=== PATIENT | female | born 1950 | race Caucasian/White ===

== ENCOUNTER 2018-02-24 10:24 | Inpatient (IN) ==
[2018-02-24] MEDS ORDERED: Magnesium Sulfate Inj 2 GM in Sodium Chlor 0.9% Inj 96 ML IV.SIG ONE (10:32)
[2018-02-24] MEDS ORDERED: Famotidine PF Inj 20 MG/2 ML Vial IV.PUSH ONE (10:44)
[2018-02-24 10:56] LABS: Baso # (Auto) 0.1 th/mm3 (0.0-0.2); Baso % (Auto) 0.7 % (0.0-2.0); Eos # (Auto) 0.1 th/mm3 (0.0-0.4); Eos % (Auto) 0.8 % (0.0-4.0); Hematocrit 51.6 % (35.0-46.0); Hemoglobin 16.8 gm/dL (11.6-15.3); Lymph % (Auto) 41.5 % (9.0-44.0); Mean Corpuscular HGB Conc 32.5 % (32.0-36.0); Mean Corpuscular Hemoglobin 31.8 pg (27.0-34.0); Mean Corpuscular Volume 98.1 fL (80.0-100.0); Mono # (Auto) 0.6 th/mm3 (0.0-0.9); Mono % (Auto) 6.8 % (0.0-8.0); Neut # (Auto) 4.7 th/mm3 (1.8-7.7); Neut % (Auto) 50.2 % (16.0-70.0); Platelet Count 284 th/mm3 (150-450); Red Blood Count 5.27 mil/mm3 (4.00-5.30); Red Cell Distribution Width 12.8 % (11.6-17.2); White Blood Count 9.5 th/mm3 (4.0-11.0)
--- NOTE | 2018-02-24 10:57 | ED ---
HPI General Chief Complaint: Shortness of Breath/Dyspnea Stated Complaint: breathing problems/evac Time Seen by Provider: 02/24/18 10:30 Source: patient and EMS Mode of arrival: EMS Limitations: no limitations History of Present Illness 67-year-old female patient with previous history of COPD, presents to the ER today brought in by EMS because of sudden worsening of shortness of breath this morning according to her , coughing, and dyspnea. She currently is fairly anxious, is very difficult to get a history from. She apparently is allergic to Solu-Medrol and prednisone, states that she throws up. She had been given albuterol nebulizers by EMS. She denies any previous history of hospitalizations for COPD. Modifying Factors: None Associated Signs & Symptoms: None dyspnea, shortness of breath Risk Factors: COPD Related Data Home Medications Medication Instructions Recorded Confirmed albuterol sulfate [Ventolin HFA] 2 puff INHALATION Q4-6H PRN 02/24/18 02/24/18 aspirin 81 mg PO DAILY 02/24/18 02/24/18 doxycycline hyclate 50 mg PO DAILY 02/24/18 02/24/18 fenofibrate 150 mg PO DAILY 02/24/18 02/24/18 triamterene-hydrochlorothiazid 1 tab PO DAILY 02/24/18 02/24/18 umeclidinium-vilanterol [Anoro 1 inh INHALATION Q24H 02/24/18 02/24/18 Ellipta] Allergies Allergy/AdvReac Type Severity Reaction Status Date / Time bacitracin Allergy Severe ITCH Verified 02/24/18 11:01 clarithromycin Allergy Severe Dizziness Verified 02/24/18 11:04 codeine Allergy Severe AGITATION Verified 02/24/18 11:01 gramicidin D Allergy Severe ITCH Verified 02/24/18 11:01 neomycin Allergy Severe ITCH Verified 02/24/18 11:01 penicillin G Allergy Severe HIVES Verified 02/24/18 11:01 polymyxin B Allergy Severe ITCH Verified 02/24/18 11:01 succinylcholine Allergy Severe PSEUDOCHOLINESTERASE Verified 02/24/18 11:01 DEFICIENCY triamterene Allergy Severe Swelling Verified 02/24/18 11:04 of Lip/Tongue/Throat Review of Systems ROS: all other systems reviewed are negative PMFSH History History Provided By: Patient Medical History Medical History Breast CA (Acute) COPD (chronic obstructive pulmonary disease) (Acute) Surgical History Surgical History H/O lumpectomy (Acute) Social History Social History Substance History: No History of Abuse Smoking Status: Former smoker How Often Do You Have a Drink Containing Alcohol: 4 or more times a week Recent Travel in [facility] within the Last 8 Weeks: Yes Recent Out of Country Travel within the Last 8 Weeks: Yes Exam Narrative Exam Narrative: GENERAL: Well-developed elderly female patient currently and moderate to severe respiratory distress. Awake, alert, very anxious. SKIN: Focused skin assessment warm/diaphoretic. HEAD: Atraumatic. Normocephalic. EYES: Pupils equal and round. No scleral icterus. No injection or drainage. ENT: No nasal bleeding or discharge. Mucous membranes pink and moist. NECK: Trachea midline. No JVD. CARDIOVASCULAR: fast and regular rhythm. No murmur appreciated. RESPIRATORY: moderate accessory muscle use. Decreased lung sounds at the bases bilaterally, crackles in the upper lung rodriguez bilaterally. Breath sounds equal bilaterally. GASTROINTESTINAL: Abdomen soft, non-tender, nondistended. Hepatic and splenic margins not palpable. MUSCULOSKELETAL: No obvious deformities. No clubbing. No cyanosis. No edema. NEUROLOGICAL: Awake and alert. No obvious cranial nerve deficits. Motor grossly within normal limits. Normal speech. PSYCHIATRIC: Very anxious mood and affect; insight and judgment normal. Course Initial Documented Vital Signs Pulse Oximetry 96 02/24/18 10:24 Last Documented Vital Signs Temperature 99 F 02/24/18 11:18 Pulse Rate 100 H 02/24/18 12:50 Respiratory Rate 20 02/24/18 12:50 Blood Pressure 122/69 02/24/18 12:50 Pulse Oximetry 95 02/24/18 12:50 Medical Decision Making MDM Narrative Medical decision making narrative: Patient was initially in significant respiratory distress and BiPAP was initiated in the ER. We did not give her Solu-Medrol because she states that she is allergic to steroids and vomits, and at this point, she was initiated on duo nebs. There was some improvement with the BiPAP but she is fairly anxious and had to be given Ativan in order to remain on the BiPAP. It was noted that she had some of what appear to be urticaria on her legs. Patient's arrived and on further questioning, he states that he has noticed that this morning and it was not there before. She apparently has not been on any new medications. She has not had issues like this in the past. And at this point, allergic reaction treatment was initiated including epinephrine, Benadryl, Zantac and nebulizers were continued. Patient improved soon afterwards. Chest x-ray showing signs of pulmonary edema and Lasix was given in the ER. Lab work shows a BNP of over thousand. EKG showed significant sinus tachycardia with a bundle branch block on initial EKG, ventricular rate was 149. A repeat EKG done when she was looking symptomatically improved shows a left bundle branch block at a rate of 100 bpm. Troponin is only mildly elevated, 0.06. Patient did not have any chest pains and is feeling better on reevaluation after the initial treatments have been ordered. At this point, I have discussed the case with Dr. Abdirahman hernandez and I had taken the patient off of BiPAP and she is on nasal cannula. However, she is still somewhat symptomatic and it was suggested that patient would be better off care for by manager of application development. Case was then discussed with Dr. Gallagher who would like to transfer the patient to the main hospital ICU for admission. Aggregate critical care time was 45 minutes. Time to perform other separately billable procedures was not included in the critical care time. My time did not include minutes spent treating any other patients simultaneously or on activities that did not directly contribute to the patient's treatment. The services I provided to this patient were to treat and/or prevent clinically significant deterioration that could result in: Worsening respiratory distress, respiratory arrest, I provided critical care services requiring my management, as noted below: Chart data review, documentation time, medication orders and management, vital sign assessments/reviewing monitor data, ordering and reviewing lab tests, ordering and interpreting/reviewing x-rays and diagnostic studies, care of the patient and discussion of the patient with the admitting physicians. Medical Screen Exam Complete: Yes Emergency Medical Condition: Yes Differential Diagnosis Differential Diagnosis: COPD exacerbation versus CHF versus pneumonia versus allergic reaction Lab Data Lab results reviewed: Yes I reviewed the patient's lab results. Result diagrams: 02/24/18 10:40 02/24/18 11:35 Lab Results 02/24/18 02/24/18 02/24/18 Range/Units 10:40 10:40 11:35 CBC w Diff Auto diff final WBC 9.5 (4.0-11.0) th/mm3 RBC 5.27 (4.00-5.30) mil/mm3 Hgb 16.8 H (11.6-15.3) gm/dL Hct 51.6 H (35.0-46.0) % MCV 98.1 (80.0-100.0) fL MCH 31.8 (27.0-34.0) pg MCHC 32.5 (32.0-36.0) % RDW 12.8 (11.6-17.2) % Plt Count 284 (150-450) th/mm3 MPV 8.0 (7.0-11.0) fL Neut % (Auto) 50.2 (16.0-70.0) % Lymph % (Auto) 41.5 (9.0-44.0) % [place] % (Auto) 6.8 (0.0-8.0) % Eos % (Auto) 0.8 (0.0-4.0) % Baso % (Auto) 0.7 (0.0-2.0) % Neut # (Auto) 4.7 (1.8-7.7) th/mm3 Lymph # (Auto) 4.0 (1.0-4.8) th/mm3 [place] # (Auto) 0.6 (0.0-0.9) th/mm3 Eos # (Auto) 0.1 (0.0-0.4) th/mm3 Baso # (Auto) 0.1 (0.0-0.2) th/mm3 WBC Differential . Differential Comment . Sodium 141 (136-145) meq/L Potassium 3.5 (3.5-5.1) meq/L Chloride 108 H (98-107) meq/L Carbon Dioxide 20.2 L (21.0-32.0) meq/L Anion Gap 13 (5-15) meq/L BUN 17 (7-18) mg/dL Creatinine 1.10 H (0.50-1.00) mg/dL Estimated GFR 50 L (>89) mL/min Random Glucose 255 H (74-106) mg/dL Calcium 8.2 L (8.5-10.1) mg/dL Total Bilirubin 0.5 (0.2-1.0) mg/dL AST 39 H (15-37) U/L ALT 44 (10-53) U/L Alkaline Phosphatase 61 (45-117) U/L Troponin I 0.06 H (0.02-0.05) ng/mL B-Natriuretic Peptide 1726 H (0-100) pg/mL Total Protein 7.4 (6.4-8.2) g/dL Albumin 3.6 (3.4-5.0) g/dL Imaging Data Attestation: I personally reviewed and interpreted this imaging study as follows : Radiologist's impression: Chest X-Ray 02/24/18 10:30 CONCLUSION: Diffuse increased interstitial markings likely related to diffuse processes such as edema or diffuse infection. Discharge Plan Discharge Disposition Patient Disposition: 30 Still Patient Discharge Condition Condition: Critical Discharge Details Anticipated Discharge Date: 02/24/18 Diagnosis: Pulmonary edema, Allergic reaction Physicians Team ED Provider: Jersey Bee Primary Care Provider: Joel George Attending Provider: Parris Gallagher Discharge Interventions Interventions: Vital Signs Last Done: 02/24/18 12:50 Status ED Status: Admitted Patient
--- NOTE | 2018-02-24 11:12 | XR ---
EXAM DATE: 02/24/2018 11:02 AM EST AGE/SEX: 67 years / Female INDICATIONS: Short of breath. CLINICAL DATA: This is the patient's initial encounter. Patient reports that signs and symptoms have been present for 1 day and indicates a pain score of 8/10. MEDICAL/SURGICAL HISTORY: None. None. COMPARISON: [facility] [place], CHEST PA & LAT, 05/12/2010. . FINDINGS: The heart size is mildly enlarged. There is diffuse increased interstitial markings. The costophrenic angles are grossly clear. Clips are seen over the lateral right chest. CONCLUSION: Diffuse increased interstitial markings likely related to diffuse processes such as edema or diffuse infection. Electronically signed by: Kevon Car MD 02/24/2018 11:11 AM EST
[2018-02-24 11:56] LABS: Chloride 108 meq/L (98-107); Potassium 3.5 meq/L (3.5-5.1); Sodium 141 meq/L (136-145)
[2018-02-24 12:01] LABS: Calcium 8.2 mg/dL (8.5-10.1)
[2018-02-24 12:02] LABS: Albumin 3.6 g/dL (3.4-5.0); Anion Gap 13 meq/L (5-15); Blood Urea Nitrogen 17 mg/dL (7-18); Carbon Dioxide 20.2 meq/L (21.0-32.0); Glucose,Random 255 mg/dL (74-106)
[2018-02-24 12:05] LABS: Alanine Aminotransferase 44 U/L (10-53); Aspartate Aminotransferase 39 U/L (15-37); Glomerular Filtration Rate 50 mL/min (>89)
[2018-02-24 12:06] LABS: Total Protein 7.4 g/dL (6.4-8.2)
[2018-02-24 12:08] LABS: Alkaline Phosphatase 61 U/L (45-117)
[2018-02-24 12:10] LABS: Troponin I 0.06 ng/mL (0.02-0.05)
--- NOTE | 2018-02-24 14:22 | ECG ---
Date Performed: 02/24/2018 Time Performed: 10:32:25 PTAGE: 67 years EKG: WIDE COMPLEX TACHYCARDIA WITH LEFT BUNDLE BRANCH BLOCK PATTERN PROLONGED CORRECTED QT INTER SELINA ABNORMAL ECG PREVIOUS TRACING : 05/12/2010 09.24 DOCTOR: Pop Vizcaino Interpretating Date/Time 02/24/2018 14:20:26
--- NOTE | 2018-02-24 14:22 | ECG ---
Date Performed: 02/24/2018 Time Performed: 11:41:29 PTAGE: 67 years EKG: SINUS TACHYCARDIA LEFT ATRIAL ENLARGEMENT LEFT BUNDLE BRANCH BLOCK ABNORMAL ECG PROLONGED C ORRECTED QT INTERVAL PREVIOUS TRACING : 02/24/2018 10.32 DOCTOR: Pop Vizcaino Interpretating Date/Time 02/24/2018 14:20:33
[2018-02-24] MEDS ORDERED: Acetaminophen 325 MG Tablet PO PRN (14:42)
[2018-02-24] MEDS ORDERED: Potassium Phosphate 500 MG Soluble Tablet PO PRN ×2 (14:52)
[2018-02-24] MEDS ORDERED: Potassium Chlor 40 mEq Premix 40 MEQ/100 ML PIGGYBACK IV.SIG PRN (14:52)
[2018-02-24] MEDS ORDERED: Magnesium Sulfate Inj 2 GM in Sodium Chlor 0.9% Inj 96 ML IV.SIG PRN (14:52)
[2018-02-24] MEDS ORDERED: Potassium Chloride 25 MEQ Effervescent Tablet PO PRN (14:52)
[2018-02-24] MEDS ORDERED: Potassium Chlor 20 mEq Premix 20 MEQ/100 ML PIGGYBACK IV.SIG PRN ×2 (14:52)
[2018-02-24] MEDS ORDERED: Sodium Phosphate Inj 30 MMOL in Sodium Chlor 0.9% Inj 250 ML IV.SIG PRN (14:52)
[2018-02-24] MEDS ORDERED: Magnesium Sulfate Inj 4 GM in Sodium Chlor 0.9% Inj 92 ML IV.SIG PRN (14:52)
[2018-02-24] MEDS ORDERED: Magnesium Oxide 400 MG Tablet PO PRN (14:52)
[2018-02-24] MEDS ORDERED: Potassium Phosphate Inj 30 MMOL in Sodium Chlor 0.9% Inj 250 ML IV.SIG PRN (14:52)
[2018-02-24] MEDS ORDERED: Dextrose 50% in Water 50 ML Vial IV.PUSH PRN (14:53)
[2018-02-24] MEDS ORDERED: Levofloxacin 500 mg Premix Inj 500 MG/100 ML PIGGYBACK IV.SIG SCH (15:00)
--- NOTE | 2018-02-24 16:08 | P.HPCC ---
History of Present Illness Primary Care Physician: Joel George MD Chief Complaint: Acute onset SOB History of Present Illness: Patient is a 67-year-old female with previous history of COPD, history of breast cancer, status post lumpectomy, who presented to the emergency department at [facility] for acute shortness shortness of breath. She has a history of COPD and about 2 months ago had similar episode while she was jogging. Today she states that after brushing her teeth, she acutely became short of breath where she had to sit down to catch her breath and EMS was called. She had been given albuterol nebulizers by EMS. She denies any cardiac history and specifically no history of CHF. Denies fever or productive cough. Patient was very short of breath in the emergency department and hence was placed on BiPAP. She was given Ativan for anxiety. Patient was noted to have developed urticaria on her legs-unclear whether this happened in the ED after medications were given. Due to possibility of allergic reaction treatment was initiated including epinephrine, Benadryl, Zantac and nebulizers were continued with improvement in symptoms. Chest x-ray showing signs of pulmonary edema and IV Lasix 40 mg was given in the ER. Lab work shows a BNP 1726. EKG showed significant sinus tachycardia with a left bundle branch block on initial EKG, ventricular rate was 150's. Critical care medicine was requested to admit the patient I evaluated the patient in the [facility]. Patient is anxious mild to moderately short of breath. She again describes sudden onset shortness of breath which was very severe. But this appears like flash pulmonary edema/CHF. Patient will be placed on scheduled Lasix. Due to new onset CHF, and left bundle branch block which is probably new, I have consulted cardiology. I did a bedside echo which shows left ventricular ejection fraction approximately 20-25 % with dilated LV and global LV dysfunction. Formal echo is pending at this time. patient was also noted to be hyperglycemic and I have ordered a hemoglobin A1c. - Diagnosis (1) CHF (congestive heart failure) (2) Acute hypoxemic respiratory failure (3) COPD with acute exacerbation (4) Hyperglycemia (5) LBBB (left bundle branch block) (6) History of breast cancer Inpatient Certification: I certify that the inpatient services were ordered in accordance with Medicare regulations governing the order. This includes certification that hospital inpatient services are reasonable and necessary and in the case of services not specified as inpatient-only under 42 CFR 419.22(n), that they are appropriately provided as inpatient services in accordance to with the 2-midnight benchmark under 43 CFR 412.3(e) Estimated Total Length of Stay (Days): 5 Plans for Post Hospital Care: Not yet determined Review of Systems All other systems reviewed negative except as stated in HPI [facility] - History History Provided By: Patient - Medical History Medical History: Medical History (Last Reviewed 02/24/18 @ 11:21 by Bren Hernandez RN) Breast CA COPD (chronic obstructive pulmonary disease) - Surgical History Surgical History: Surgical History (Last Updated 02/24/18 @ 11:21 by Bren Hernandez RN) H/O lumpectomy - Tobacco History Tobacco Use In Past 30 Days: No Smoking Status: Former smoker - Alcohol History How Often Do You Have a Drink Containing Alcohol: 4 or more times a week - Substance Use History Substance History: No History of Abuse - Travel History Recent Travel in the [place] Within the Last 8 Weeks: Yes Recent Travel Out of the Country Within the Last 8 Weeks: Yes - Immunization History Tetanus Immunization: Unsure Medications and Allergies Active Medications: Active Medications Acetaminophen (Tylenol) 650 mg PO Q6H PRN PRN Reason: PAIN 1-10 AND/OR FEVER >101F Albuterol (Duoneb Neb (Humaira)) 1 ampul NEB Q4HR NEB HUMAIRA Albuterol (Albuterol Neb (Prn)) 2.5 mg NEB Q4HR NEB PRN PRN Reason: SHORTNESS OF BREATH Aspirin (Aspirin Chew) 81 mg PO DAILY HUMAIRA Chlorhexidine Gluconate (Chlorhexidine 2% Cloth) 3 pack TOPICAL DAILY@0400 HUMAIRA Stop: 03/02/18 03:59 Chlorhexidine Gluconate (Chlorhexidine 2% Cloth) 3 pack TOPICAL DAILY@0400 PRN PRN Reason: Extra cloth needed Stop: 03/02/18 03:59 Dexamethasone Sodium Phosphate (Decadron Inj) 4 mg IV.PUSH Q8HR HUMAIRA Dextrose (D50w Vial) 50 ml IV.PUSH UNSCH PRN PRN Reason: PER HYPOGLYCEMIA PROTOCOL Enoxaparin Sodium (Lovenox Inj) 40 mg SQ Q24H HUMAIRA Famotidine (Pepcid Pf Inj) 20 mg IV.PUSH Q12HR HUMAIRA Fenofibrate (Tricor) 145 mg PO DAILY HUMAIRA Furosemide (Lasix Inj) 20 mg IV.PUSH BID@0900,1800 HUMAIRA Glucagon (Glucagon Inj) 1 mg OTHER PRN PRN PRN Reason: for Hypoglycemia Protocol Sodium Chloride (Ns Inj) 1,000 mls @ 75 mls/hr IV.CONT .[id number] HUMAIRA Potassium Chloride (Kcl 40 Meq Premix Inj) 40 meq in 100 mls @ 25 mls/hr IV.SIG Q2H PRN PRN Reason: For Potassium 2.8 - 3.2 mEq/L Potassium Chloride (Kcl 20 Meq Premix Inj) 20 meq in 100 mls @ 50 mls/hr IV.SIG Q2H PRN PRN Reason: For Potassium 3.3 - 3.5 mEq/L Potassium Chloride (Kcl 40 Meq Premix Inj) 40 meq in 100 mls @ 25 mls/hr IV.SIG UNSCH PRN PRN Reason: For Potassium 3.3 - 3.5 mEq/L Potassium Phosphate 30 mmol/ (Sodium Chloride) 260 mls @ 42 mls/hr IV.SIG UNSCH PRN PRN Reason: SEE LABEL COMMENTS Sodium Phosphate 30 mmol/ (Sodium Chloride) 260 mls @ 42 mls/hr IV.SIG UNSCH PRN PRN Reason: For Phosphorus < 2.5 mg/dL Potassium Chloride (Kcl 20 Meq Premix Inj) 20 meq in 100 mls @ 50 mls/hr IV.SIG Q2H PRN PRN Reason: For Potassium 2.8 - 3.2 mEq/L Magnesium Sulfate 4 gm/ Sodium (Chloride) 100 mls @ 50 mls/hr IV.SIG UNSCH PRN PRN Reason: For Magnesium 0.9 - 1.1 mg/dL Magnesium Sulfate 2 gm/ Sodium (Chloride) 100 mls @ 50 mls/hr IV.SIG UNSCH PRN PRN Reason: For Magnesium 1.2 - 1.6 mg/dL Levofloxacin/Dextrose (Levaquin 500 Mg Premix Inj) 500 mg in 100 mls @ 100 mls/ hr IV.SIG Q24H HUMAIRA Insulin Human Regular (Novolin R Correctional Sugar Inj) 0 units SQ Q6HR HUMAIRA; Protocol Magnesium Oxide (Mag-Ox) 800 mg PO UNSCH PRN PRN Reason: For Magnesium 1.2 - 1.6 mg/dL Potassium Bicarb/Potassium Chloride (K-Lyte Cl Eff) 50 meq PO UNSCH PRN PRN Reason: For Potassium 3.3 - 3.5 mEq/L Potassium Chloride (K-Dur) 20 meq PO DAILY HUMAIRA Potassium Phosphate (K-Phos Original) 2,000 mg PO Q4H PRN PRN Reason: Phosphorus Less Than 2.5 mg/dL Potassium Phosphate (K-Phos Original) 2,000 mg PO UNSCH PRN PRN Reason: SEE LABEL COMMENTS Umeclidinium/Vilanterol (Anoro-Ellipta 62.5/25 Mcg Inh) 1 inhalation INH DAILY HUMAIRA Allergies Allergy/AdvReac Type Severity Reaction Status Date / Time bacitracin Allergy Severe ITCH Verified 02/24/18 11:01 clarithromycin Allergy Severe Dizziness Verified 02/24/18 11:04 codeine Allergy Severe AGITATION Verified 02/24/18 11:01 gramicidin D Allergy Severe ITCH Verified 02/24/18 11:01 neomycin Allergy Severe ITCH Verified 02/24/18 11:01 penicillin G Allergy Severe HIVES Verified 02/24/18 11:01 polymyxin B Allergy Severe ITCH Verified 02/24/18 11:01 succinylcholine Allergy Severe PSEUDOCHOLINESTERASE Verified 02/24/18 11:01 DEFICIENCY triamterene Allergy Severe Swelling Verified 02/24/18 11:04 of Lip/Tongue/Throat Home Medications Medication Instructions Recorded Confirmed Type albuterol sulfate [Ventolin HFA] 2 puff INHALATION Q4-6H PRN 02/24/18 02/24/18 History aspirin 81 mg PO DAILY 02/24/18 02/24/18 History doxycycline hyclate 50 mg PO DAILY 02/24/18 02/24/18 History fenofibrate 150 mg PO DAILY 02/24/18 02/24/18 History triamterene-hydrochlorothiazid 1 tab PO DAILY 02/24/18 02/24/18 History umeclidinium-vilanterol [Anoro 1 inh INHALATION Q24H 02/24/18 02/24/18 History Ellipta] Results - Labs CBC & Chem 7: 02/25/18 04:32 02/25/18 04:32 Labs: Short CBC 02/24/18 Range/Units 10:40 WBC 9.5 (4.0-11.0) th/mm3 Hgb 16.8 H (11.6-15.3) gm/dL Hct 51.6 H (35.0-46.0) % Plt Count 284 (150-450) th/mm3 BMP 02/24/18 11:35 Sodium 141 Potassium 3.5 Chloride 108 H Carbon Dioxide 20.2 L BUN 17 Creatinine 1.10 H Calcium 8.2 L Cardiac Enzymes 02/24/18 Range/Units 11:35 Troponin I 0.06 H (0.02-0.05) ng/mL Liver Function 02/24/18 Range/Units 11:35 Total Bilirubin 0.5 (0.2-1.0) mg/dL AST 39 H (15-37) U/L ALT 44 (10-53) U/L Alkaline Phosphatase 61 (45-117) U/L Albumin 3.6 (3.4-5.0) g/dL - Imaging Impressions Chest X-Ray 02/24/18 10:30 CONCLUSION: Diffuse increased interstitial markings likely related to diffuse processes such as edema or diffuse infection. Exam Vital signs: Vital Signs 02/24/18 10:24 02/24/18 10:30 02/24/18 10:43 Temperature Pulse Rate 157 H 131 H Respiratory Rate 29 H Blood Pressure Pulse Oximetry 96 95 02/24/18 10:50 02/24/18 11:18 02/24/18 11:19 Temperature 99.0 F 99 F Pulse Rate 157 H 105 H 153 H Respiratory Rate 36 H 19 33 H Blood Pressure 180/105 H 119/69 Pulse Oximetry 95 97 02/24/18 11:46 02/24/18 12:45 02/24/18 12:50 Temperature Pulse Rate 103 H 100 H Respiratory Rate 18 20 Blood Pressure 125/72 122/69 Pulse Oximetry 97 95 95 02/24/18 14:10 Temperature Pulse Rate 101 H Respiratory Rate 18 Blood Pressure 109/58 L Pulse Oximetry 97 Intake & Output 02/23/18 02/24/18 02/24/18 18:59 06:59 18:59 Weight 63.503 kg Narrative: GENERAL: Well-developed elderly female patient currently in mild respiratory distress. Awake, alert, anxious. SKIN: Warm, no rashes at this time HEAD: Atraumatic. Normocephalic. EYES: Pupils equal and round. No scleral icterus. No injection or drainage. ENT: No nasal bleeding or discharge. Mucous membranes pink and moist. NECK: Trachea midline. No JVD. CARDIOVASCULAR: Tachycardic. No murmur appreciated. EF about 20-25% on bedside Echo. Dilated LV RESPIRATORY: No accessory muscle use. Decreased lung sounds at the bases bilaterally, few crackles at the bases GASTROINTESTINAL: Abdomen soft, non-tender, nondistended. Hepatic and splenic margins not palpable. MUSCULOSKELETAL: No obvious deformities. No clubbing. No cyanosis. 1+ pedal edema. NEUROLOGICAL: Anxious, awake and alert. No obvious cranial nerve deficits. Motor grossly within normal limits. Normal speech. Septic Shock Reassessment Septic shock perfusion: reassessment completed Caprini VTE Risk Assessment Caprini VTE Risk Assessment: Moderate/High Risk (score >= 2) Caprini Risk Assessment Model: Point Value = 1 Point Value = 2 Point Value = 3 Point Value = 5 Age 41-60 Minor surgery BMI > 25 kg/m2 Swollen legs Varicose veins or History of unexplained or recurrent spontaneous Oral contraceptives or hormone replacement Sepsis (< 1 month) Serious lung disease, including pneumonia (< 1 month) Abnormal pulmonary function Acute myocardial infarction Congestive heart failure (< 1 month) History of inflammatory bowel disease Medical patient at bed rest Age 61-74 Arthroscopic surgery Major open surgery (> 45 min) Laparoscopic surgery (> 45 min) Malignancy Confined to bed (> 72 hours) Immobilizing plaster cast Central venous access Age >= 75 History of VTE Family history of VTE Factor V Leiden Prothrombin [id number] Lupus anticoagulant Anticardiolipin antibodies Elevated serum homocysteine Heparin-induced thrombocytopenia Other congenital or acquired thrombophilia Stroke (< 1 month) Elective arthroplasty Hip, pelvis, or leg fracture Acute spinal cord injury (< 1 month) Prophylaxis Regimen: Total Risk Factor Score Risk Level Prophylaxis Regimen 0-1 Low Early ambulation 2 Moderate Order ONE of the following: *Sequential Compression Device (SCD) *Heparin 5000 units SQ BID 3-4 Higher Order ONE of the following medications: *Heparin 5000 units SQ TID *Enoxaparin/Lovenox 40 mg SQ daily (WT < 150 kg, CrCl > 30 mL/min) *Enoxaparin/Lovenox 30 mg SQ daily (WT < 150 kg, CrCl > 10-29 mL/min) *Enoxaparin/Lovenox 30 mg SQ BID (WT < 150 kg, CrCl > 30 mL/min) AND/OR *Sequential Compression Device (SCD) 5 or more Highest Order ONE of the following medications: *Heparin 5000 units SQ TID (Preferred with Epidurals) *Enoxaparin/Lovenox 40 mg SQ daily (WT < 150 kg, CrCl > 30 mL/min) *Enoxaparin/Lovenox 30 mg SQ daily (WT < 150 kg, CrCl > 10-29 mL/min) *Enoxaparin/Lovenox 30 mg SQ BID (WT < 150 kg, CrCl > 30 mL/min) AND *Sequential Compression Device (SCD) Assessment and Plan - Problem List (1) CHF (congestive heart failure) Code(s): I50.9 - Heart failure, unspecified Status: Acute (2) Acute hypoxemic respiratory failure Code(s): J96.01 - Acute respiratory failure with hypoxia Status: Acute (3) COPD with acute exacerbation Code(s): J44.1 - Chronic obstructive pulmonary disease with (acute) exacerbation Status: Acute (4) Hyperglycemia Code(s): R73.9 - Hyperglycemia, unspecified Status: Suspected (5) LBBB (left bundle branch block) Code(s): I44.7 - Left bundle-branch block, unspecified Status: Acute (6) History of breast cancer Code(s): Z85.3 - Personal history of malignant neoplasm of breast Status: Chronic - Assessment and Plan Plan: NEURO: Daily alcohol use -Minimize sedation -Supplement multivitamin thiamine due to history of daily alcohol use RESP: Acute hypoxemic respiratory failure COPD exacerbation -BiPAP PRN -Allergic to Solu-medrol, start Decadron 4 mg IV q6 -Received epinephrine, Benadryl, famotidine for possible allergic reaction -DuoNeb every 4 hours scheduled and as needed -Check urine for Legionella antigen, Levaquin empirically for COPD exacerbation -Check for influenza A and B CV: Congestive heart failure/pulmonary edema Dilated cardiomyopathy (no history) Left bundle branch block Elevated BNP -IV Lasix 40 mg x1 given in ED, continue Lasix 20 mg IV every 8 with potassium replacement -Bedside echo shows EF approximately 20-25% with dilated LV, global LV dysfunction -Her cardiomyopathy could be secondary to alcohol or could be ischemic -Chemotherapy for breast cancer was approximately 17 years ago -2d echo, serial troponin -Cardiology consult for new onset CHF, left bundle branch block. D/W -A wide-complex tachycardia noted on EKG is most likely sinus tachycardia with left bundle branch block GI: -Cardiac diet once respiratory status improves, IV famotidine : -Monitor renal function closely. Place Goncalves catheter if needed ID: -Antibiotics, empiric Levaquin started -Check urine for Legionella antigen, influenza A and B. -Levaquin empirically for COPD exacerbation HEME: -Monitor CBC, coags ENDO: Hyperglycemia -Electrolyte replacement per protocol -Sliding scale insulin -Check hemoglobin A1c PROPH: -Bilateral lower extremity SCDs. Lovenox/famotidine LINES: -Utilize peripheral IVs, central line if needed CCT 45 MIN Continue ICU care as the patient is at risk for acute decompensation. At this time she is critical with new onset CHF left bundle branch block and COPD exacerbation. Pulmonary embolism is being ruled out and patient is being carefully diuresed Code Status: Full
[2018-02-24] MEDS: Sod Chloride 0.9% Inj 1,000 ML IV.CONT SCH (16:44)
[2018-02-24] MEDS: Enoxaparin Inj 40 MG/0.4 ML Syringe SQ SCH (16:45)
[2018-02-24] MEDS: Levofloxacin 500 mg Premix Inj 500 MG/100 ML PIGGYBACK IV.SIG SCH (16:45)
[2018-02-24] MEDS: Insulin NovoLIN Regular Correctional Sugar Inj SQ SCH (17:26)
[2018-02-24] MEDS: Multivitamin Inj 10 ML, Thiamine Inj 100 MG, Folic Acid Inj 1 MG in Sodium Chlor 0.9% I... IV.SIG SCH (18:02)
[2018-02-24] MEDS: Famotidine PF Inj 20 MG/2 ML Vial IV.PUSH SCH (20:04)
[2018-02-25] MEDS: Insulin NovoLIN Regular Correctional Sugar Inj SQ SCH ×4 (01:45→17:16)
[2018-02-25] MEDS ORDERED: Chlorhexidine Gluconate 2% 1 Pack (2 Cloths) TOPICAL PRN (04:00)
[2018-02-25 05:48] LABS: Hematocrit 45.3 % (35.0-46.0); Hemoglobin 15.3 gm/dL (11.6-15.3); Lymph # (Auto) 0.7 th/mm3 (1.0-4.8); Lymph % (Auto) 8.5 % (9.0-44.0); Mean Corpuscular HGB Conc 33.9 % (32.0-36.0); Mean Corpuscular Hemoglobin 33.3 pg (27.0-34.0); Mean Corpuscular Volume 98.5 fL (80.0-100.0); Mean Platelet Volume 7.9 fL (7.0-11.0); Mono # (Auto) 0.1 th/mm3 (0.0-0.9); Mono % (Auto) 1.8 % (0.0-8.0); Neut # (Auto) 7.1 th/mm3 (1.8-7.7); Neut % (Auto) 89.7 % (16.0-70.0); Platelet Count 223 th/mm3 (150-450); Red Cell Distribution Width 12.9 % (11.6-17.2)
[2018-02-25] MEDS: Chlorhexidine Gluconate 2% 1 Pack (2 Cloths) TOPICAL SCH (06:05)
[2018-02-25] MEDS: Sod Chloride 0.9% Inj 1,000 ML IV.CONT SCH ×2 (06:06→16:44)
[2018-02-25 06:11] LABS: Albumin 3.8 g/dL (3.4-5.0); Anion Gap 17 meq/L (5-15); Aspartate Aminotransferase 26 U/L (15-37); Blood Urea Nitrogen 17 mg/dL (7-18); Calcium 8.5 mg/dL (8.5-10.1); Carbon Dioxide 20.7 meq/L (21.0-32.0); Chloride 102 meq/L (98-107); Glomerular Filtration Rate 55 mL/min (>89); Glucose,Random 151 mg/dL (74-106); Potassium 3.4 meq/L (3.5-5.1); Sodium 140 meq/L (136-145)
[2018-02-25 06:12] LABS: Alanine Aminotransferase 37 U/L (10-53)
[2018-02-25 06:14] LABS: Alkaline Phosphatase 59 U/L (45-117); Total Protein 7.9 g/dL (6.4-8.2)
[2018-02-25] MEDS ORDERED: Heparin Drip 25,000 UNIT/250 ML BAG IV.CONT PRN (06:36)
--- NOTE | 2018-02-25 07:00 | XR ---
EXAM DATE: 02/25/2018 6:51 AM EST AGE/SEX: 67 years / Female INDICATIONS: Shortness of breath. CLINICAL DATA: This is the patient's subsequent encounter. Patient reports that signs and symptoms h ave been present for 2 days and indicates a pain score of 0/10. MEDICAL/SURGICAL HISTORY: Carcinoma, breast. Chronic obstructive pulmonary disease. . Lumpecto my COMPARISON: HPO, CHEST 1V SINGLE AP, 02/24/2018. . FINDINGS: The heart size is mildly enlarged. Lungs demonstrate minimal diffuse increased interstitial markings which appear to be improving from the prior exam. There is minimal blunting of the costophrenic angle s. Clips are seen over the right lateral chest. CONCLUSION: Persistent but improving increased interstitial markings likely related to improving edema. Electronically signed by: Kevon Car MD 02/25/2018 6:59 AM EST
[2018-02-25] MEDS: Fenofibrate 145 MG Tablet PO SCH (08:13)
[2018-02-25] MEDS: Famotidine PF Inj 20 MG/2 ML Vial IV.PUSH SCH ×2 (08:13→21:05)
[2018-02-25] MEDS: Umeclindinium 62.5 MCG/Vilanterol 25 MCG Inhaler INH SCH (08:14)
[2018-02-25 08:38] LABS: Activated Partial Thrombo Time 22.7 sec (23.4-31.7); INR 1.1 Ratio
[2018-02-25 08:54] LABS: Thyroid Stimulating Hormone 0.247 uIU/mL (0.358-3.740); Troponin I 0.04 ng/mL (0.02-0.05)
[2018-02-25 09:26] LABS: Free T4 (Free Thyroxine) 0.97 ng/dL (0.76-1.46)
[2018-02-25 09:28] LABS: Hemoglobin A1c 5.6 % (4.3-6.0)
--- NOTE | 2018-02-25 11:50 | P.PNIM ---
Subjective Interval history: Respiratory distress has improved. Possible plan for heart catheterization soon. Patient has no complaints of chest pain when seen. She has no previous episodes of hospitalized CHF exacerbations, her current onset of shortness of breath happened after Thanksgiving meals. Physical Exam Vital signs: Vital Signs 02/24/18 11:46 02/24/18 12:45 02/24/18 12:50 Temperature Pulse Rate 103 H 100 H Respiratory Rate 18 20 Blood Pressure 125/72 122/69 Pulse Oximetry 97 95 95 02/24/18 14:10 02/24/18 16:00 02/24/18 17:11 Temperature 98.9 F Pulse Rate 101 H 96 H Respiratory Rate 18 16 Blood Pressure 109/58 L 122/69 Pulse Oximetry 97 97 96 02/24/18 18:00 02/24/18 19:27 02/24/18 20:00 Temperature 98.7 F Pulse Rate 96 H 95 H 93 H Respiratory Rate 16 25 H 23 Blood Pressure 122/69 Pulse Oximetry 96 96 97 02/24/18 20:31 02/24/18 21:00 02/24/18 21:05 Temperature Pulse Rate 98 H 92 H 83 Respiratory Rate 53 H 21 22 Blood Pressure 127/73 Pulse Oximetry 96 94 L 94 L 02/24/18 22:00 02/24/18 23:00 02/24/18 23:43 Temperature Pulse Rate 99 H 93 H 94 H Respiratory Rate 21 16 22 Blood Pressure 89/52 L Pulse Oximetry 93 L 92 L 92 L 02/25/18 00:00 02/25/18 01:00 02/25/18 02:00 Temperature 98.4 F Pulse Rate 88 81 79 Respiratory Rate 26 H 17 20 Blood Pressure Pulse Oximetry 93 L 90 L 92 L 02/25/18 03:00 02/25/18 03:40 02/25/18 04:00 Temperature 98.4 F Pulse Rate 84 84 92 H Respiratory Rate 22 20 22 Blood Pressure Pulse Oximetry 93 L 96 02/25/18 04:15 02/25/18 05:00 02/25/18 06:00 Temperature Pulse Rate 97 H 88 90 Respiratory Rate 25 H 28 H 26 H Blood Pressure 131/70 Pulse Oximetry 95 94 L 90 L 02/25/18 07:38 02/25/18 07:49 02/25/18 08:00 Temperature 98.5 F Pulse Rate 88 95 H Respiratory Rate 12 20 Blood Pressure 116/57 L Pulse Oximetry 95 95 96 02/25/18 09:00 Temperature Pulse Rate 107 H Respiratory Rate Blood Pressure Pulse Oximetry Intake & Output 02/24/18 02/25/18 02/25/18 18:59 06:59 18:59 Intake Total 100 / 100 751.2 / 751.2 Output Total 500 / 500 Balance -400 / -400 751.2 / 751.2 Weight 63.503 kg 69 kg Intake: IV 100 / 100 511.2 / 511.2 Levaquin 500 mg Premix Inj 500 100 / 100 mg In 100 ml @ 100 mls/hr IV. SIG Q24H GRACE Rx#:[id number] MVI-12 Inj 10 ML Thiamine Inj 511.2 / 511.2 100 MG Folvite Inj 1 MG In NS Inj 500 ML @ 125 mls/hr IV.SIG Q24H GRACE Rx#:[id number] Oral 240 / 240 Output: Urine 500 / 500 Other: # Voids 5 # Bowel Movements 0 Narrative: GENERAL: NAD, A&Ox3 HEAD: Normocephalic. NECK: Supple, trachea midline. No lymphadenopathy. EYES: No scleral icterus. No injection or drainage. CARDIOVASCULAR: Regular rate and rhythm without murmurs, gallops, or rubs. RESPIRATORY: Breath sounds equal bilaterally. No accessory muscle use. Bilateral crackles at bases. GASTROINTESTINAL: Abdomen soft, non-tender, nondistended. MUSCULOSKELETAL: No cyanosis, or edema. SKIN: Warm and dry. NEURO: No focal neurological deficits. Results - Labs CBC & Chem 7: 02/25/18 04:32 02/25/18 04:32 Laboratory Results - last 24 hr 02/24/18 02/24/18 02/24/18 10:40 11:35 16:00 WBC RBC Hgb Hct MCV MCH MCHC RDW Plt Count MPV Prelim Diff (Auto) Neut % (Auto) Lymph % (Auto) [place] % (Auto) Eos % (Auto) Baso % (Auto) Neut # (Auto) Lymph # (Auto) [place] # (Auto) Eos # (Auto) Baso # (Auto) WBC Differential Diff Scan Differential Comment PT INR APTT Sodium 141 Potassium 3.5 Chloride 108 H Carbon Dioxide 20.2 L Anion Gap 13 BUN 17 Creatinine 1.10 H Estimated GFR 50 L POC Glucose Random Glucose 255 H Hemoglobin A1c 5.6 Lactic Acid Calcium 8.2 L Total Bilirubin 0.5 AST 39 H ALT 44 Alkaline Phosphatase 61 Troponin I 0.06 H B-Natriuretic Peptide Total Protein 7.4 Albumin 3.6 TSH Free T4 Nasal Screen MRSA (PCR) Mrsa detected 02/24/18 02/24/18 02/24/18 16:27 16:59 17:45 WBC RBC Hgb Hct MCV MCH MCHC RDW Plt Count MPV Prelim Diff (Auto) Neut % (Auto) Lymph % (Auto) [place] % (Auto) Eos % (Auto) Baso % (Auto) Neut # (Auto) Lymph # (Auto) [place] # (Auto) Eos # (Auto) Baso # (Auto) WBC Differential Diff Scan Differential Comment PT INR APTT Sodium Potassium Chloride Carbon Dioxide Anion Gap BUN Creatinine Estimated GFR POC Glucose 98 Random Glucose Hemoglobin A1c Lactic Acid 3.1 H Calcium Total Bilirubin AST ALT Alkaline Phosphatase Troponin I 0.19 H D B-Natriuretic Peptide Total Protein Albumin TSH Free T4 Nasal Screen MRSA (PCR) 02/24/18 02/25/18 02/25/18 23:46 04:32 04:32 WBC 8.0 RBC 4.60 Hgb 15.3 Hct 45.3 MCV 98.5 MCH 33.3 MCHC 33.9 RDW 12.9 Plt Count 223 MPV 7.9 Prelim Diff (Auto) Slide review pending Neut % (Auto) 89.7 H Lymph % (Auto) 8.5 L [place] % (Auto) 1.8 Eos % (Auto) 0.0 Baso % (Auto) 0.0 Neut # (Auto) 7.1 Lymph # (Auto) 0.7 L [place] # (Auto) 0.1 Eos # (Auto) 0.0 Baso # (Auto) 0.0 WBC Differential . Diff Scan Auto diff confirmed Differential Comment . PT INR APTT Sodium 140 Potassium 3.4 L Chloride 102 Carbon Dioxide 20.7 L Anion Gap 17 H BUN 17 Creatinine 1.00 Estimated GFR 55 L POC Glucose 140 H Random Glucose 151 H D Hemoglobin A1c Lactic Acid Calcium 8.5 Total Bilirubin 0.7 AST 26 ALT 37 Alkaline Phosphatase 59 Troponin I B-Natriuretic Peptide Total Protein 7.9 Albumin 3.8 TSH Free T4 Nasal Screen MRSA (PCR) 02/25/18 02/25/18 02/25/18 06:04 08:14 08:14 WBC RBC Hgb Hct MCV MCH MCHC RDW Plt Count MPV Prelim Diff (Auto) Neut % (Auto) Lymph % (Auto) [place] % (Auto) Eos % (Auto) Baso % (Auto) Neut # (Auto) Lymph # (Auto) [place] # (Auto) Eos # (Auto) Baso # (Auto) WBC Differential Diff Scan Differential Comment PT 11.0 INR 1.1 APTT 22.7 L Sodium Potassium Chloride Carbon Dioxide Anion Gap BUN Creatinine Estimated GFR POC Glucose 174 H Random Glucose Hemoglobin A1c Lactic Acid Calcium Total Bilirubin AST ALT Alkaline Phosphatase Troponin I 0.04 D B-Natriuretic Peptide Total Protein Albumin TSH 0.247 L Free T4 0.97 Nasal Screen MRSA (PCR) 02/25/18 02/25/18 08:14 08:14 WBC RBC Hgb Hct MCV MCH MCHC RDW Plt Count MPV Prelim Diff (Auto) Neut % (Auto) Lymph % (Auto) [place] % (Auto) Eos % (Auto) Baso % (Auto) Neut # (Auto) Lymph # (Auto) [place] # (Auto) Eos # (Auto) Baso # (Auto) WBC Differential Diff Scan Differential Comment PT INR APTT Sodium Potassium Chloride Carbon Dioxide Anion Gap BUN Creatinine Estimated GFR POC Glucose Random Glucose Hemoglobin A1c Lactic Acid 4.8 H* Calcium Total Bilirubin AST ALT Alkaline Phosphatase Troponin I B-Natriuretic Peptide 994 H Total Protein Albumin TSH Free T4 Nasal Screen MRSA (PCR) Microbiology 02/24/18 17:00 Urine - Clean Catch Urine Legionella Antigen - Final Presumptive negative for Legionella pneumophila serogroup 1 antigen in urine, suggesting no recent or recurrent infection. Infection due to Legionella cannot be ruled out since other serogroups and species may cause disease, antigen may not be present in urine in early infection, and the level of antigen present in the urine may be below the detection limit of the test. 02/24/18 16:00 Nasal Wash Influenza Types A,B Antigen - Final Negative for FLU A and B antigen Infection due to influenza A or B cannot be ruled out since the antigen present in the sample may be below the detection limit of the test. - Imaging Impressions Chest X-Ray 02/25/18 06:35 CONCLUSION: Persistent but improving increased interstitial markings likely related to improving edema. Assessment and Plan - Plan 67-year-old female admitted secondary to respiratory distress with known history of congestive heart failure Pulmonary edema Systolic congestive heart failure exacerbation Dilated cardiomyopathy Left bundle branch block Elevated BNP Continue diuresis Follow renal function Continue oxygen support as needed Possibility of heart catheterization soon Continue Levaquin Probiotics Acute hypoxemic respiratory failure No evidence of COPD exacerbation at this time No evidence of anaphylaxis at this point Patient jittery from steroids and request discontinuation We will stop steroids today and follow clinically for any evidence of COPD flareup Etiology for respiratory failure could be related to pulmonary edema and CHF exacerbation Daily alcohol use Vitamin supplementation Monitor for DTs Hyperglycemia Follow blood sugars Steroids may increase blood sugars Steroids discontinued, as above DVT prophylaxis Lovenox SCDs
[2018-02-25] MEDS: Lactobacillus Acidophilus/L. Spores Tablet PO SCH ×2 (12:32→17:12)
--- NOTE | 2018-02-25 14:52 | ECHRPT ---
Indication: HEART FAIURE CONCLUSIONS Severely dilated left ventricle. Wall thickness is normal. The left ventricular systolic function is severely reduced with an estimated ejection fraction in th e range of 20-25%. There is global left ventricular dysfunction. There are findings consistent with dilated cardiomyopathy. Awno-vx-fgaqvebq mitral valve regurgitation. There is trace tricuspid valve regurgitation. The estimated pulmonary arterial pressure is 38.1 mmHg. BP: / HR: Rhythm: Sinus MEASUREMENTS (Male / Female) Normal Values Technical Quality:Fair 2D ECHO LV Diastolic Diameter PLAX 7.2 cm 4.2 - 5.9 / 3.9 - 5.3 cm LV Systolic Diameter PLAX 6.4 cm IVS Diastolic Thickness 0.8 cm 0.6 - 1.0 / 0.6 - 0.9 cm LVPW Diastolic Thickness 0.8 cm 0.6 - 1.0 / 0.6 - 0.9 cm LV Relative Wall Thickness 0.2 LVOT Diameter 1.7 cm Aortic Root Diameter 2.7 cm LA Systolic Diameter LX 3.4 cm 3.0 - 4.0 / 2.7 - 3.8 cm M-MODE AV Cusp Separation MM 1.6 cm DOPPLER AV Peak Velocity 185.0 cm/s AV Peak Gradient 13.7 mmHg AV Mean Gradient 7.0 mmHg AV Velocity Time Integral 28.8 cm LVOT Peak Velocity 72.9 cm/s LVOT Peak Gradient 2.1 mmHg LVOT Velocity Time Integral 10.3 cm AV Area Cont Eq vti 0.8 cm AV Area Cont Eq pk 0.9 cm Mitral E Point Velocity 71.6 cm/s Mitral A Point Velocity 115.0 cm/s Mitral E to A Ratio 0.6 LV E' Lateral Velocity 10.5 cm/s Mitral E to LV E' Lateral Ratio 6.8 LV E' Septal Velocity 3.3 cm/s Mitral E to LV E' Septal Ratio 21.6 TR Peak Velocity 265.0 cm/s TR Peak Gradient 28.1 mmHg Right Atrial Pressure 10.0 mmHg Pulmonary Artery Systolic Pressu 38.1 mmHg Right Ventricular Systolic Press 38.1 mmHg PV Peak Velocity 69.9 cm/s PV Peak Gradient 2.0 mmHg FINDINGS LEFT VENTRICLE Severely dilated left ventricle. Wall thickness is normal. The left ventricular systolic function is severely reduced with an estimated ejection fraction in th e range of 20-25%. There is global left ventricular dysfunction. There are findings consistent with dilated cardiomyopathy. RIGHT VENTRICLE Normal right ventricular size and systolic function. LEFT ATRIUM The left atrial size is normal. RIGHT ATRIUM The right atrial size is normal. ATRIAL SEPTUM No atrial level shunt is demonstrated by color flow Doppler interrogation. AORTA The aortic root and proximal ascending aorta are normal in size on limited imaging. MITRAL VALVE Eubp-uz-dpvmuqhq mitral valve regurgitation. AORTIC VALVE Trileaflet aortic valve. No aortic valve stenosis or regurgitation. TRICUSPID VALVE There is trace tricuspid valve regurgitation. The estimated pulmonary arterial pressure is 38.1 mmHg. PULMONARY VALVE No pulmonary valve regurgitation or stenosis. VESSELS The inferior vena cava was not well visualized. PERICARDIUM No pericardial effusion. Pop Vizcaino MD, FACC, FSCAI (Electronically Signed) Final Date:25 February 2018 14:51
[2018-02-25] MEDS: Levofloxacin 500 mg Premix Inj 500 MG/100 ML PIGGYBACK IV.SIG SCH (15:43)
[2018-02-25] MEDS: Enoxaparin Inj 40 MG/0.4 ML Syringe SQ SCH (15:46)
[2018-02-25] MEDS: Multivitamin Inj 10 ML, Thiamine Inj 100 MG, Folic Acid Inj 1 MG in Sodium Chlor 0.9% I... IV.SIG SCH (17:13)
[2018-02-25] MEDS: Spironolactone 25 MG Tablet PO SCH (17:13)
--- NOTE | 2018-02-25 18:32 | MB ---
cc: Pop Vizcaino MD DATE: 02/25/2018 HISTORY OF PRESENT ILLNESS: Chel is a very pleasant 67-year-old lady who presents to the emergency room with severe shortness of breath and chest tightness. She was found to have a left bundle branch block and elevated troponin. Currently, she is resting and sitting up in a chair at the bedside, in no acute distress. Denies fever, chills, cough, GI or bleeding, PND, orthopnea, syncope or dizziness. PAST MEDICAL HISTORY: Per history of present illness. She has a history of COPD, history of breast cancer, history of lumpectomy. ALLERGIES: BACITRACIN, CLARITHROMYCIN, CODEINE, GRAMICIDIN, NEOMYCIN, PENICILLIN, POLYMYXIN B, SUCCINYLCHOLINE, TRIAMTERENE. SOCIAL HISTORY: She previously smoked. Currently denies smoking. She drinks alcohol 4 more times a week. MEDICATIONS: Albuterol, aspirin 81 mg daily, Lovenox 40 mg subcutaneous q.24 hours, Pepcid 20 mg IV every 12 hours, Tricor 145 mg daily, Lasix 20 mg IV b.i.d., IV heparin, insulin, levofloxacin, magnesium oxide 800 mg p.o. p.r.n., potassium phosphate supplementation, Aldactone 25 mg b.i.d., Anoro and Ellipta 62.5/25 mcg inhaler. PHYSICAL EXAMINATION: VITAL SIGNS: Blood pressure 113/60, pulse 103, respiratory rate 31, sats 95% on 2 liters, temperature 98.5. GENERAL: She is alert and oriented x3, in no acute distress. NECK: Supple. No JVD. No bruit. CARDIOVASCULAR: S1, S2. No murmurs, rubs, or gallops. LUNGS: Most notable for decreased breath sounds at the bases. ABDOMEN: Soft, nontender, nondistended. Positive bowel sounds. EXTREMITIES: No lower extremity edema. Chest x-ray shows diffuse increased interstitial markings, likely related to diffuse processes such as edema or diffuse infection. EKG wide-complex tachycardia at 149 beats per minute. Repeat EKG shows normal sinus rhythm with intraventricular conduction delay. LABORATORY DATA: White count 9.5, hemoglobin 16.8, hematocrit 51.6, platelet count 284. INR 1.1. Sodium 140, potassium 3.4, chloride 102, bicarbonate 20.7, BUN 17, creatinine 1.0. Lactic acid is 4.8. BNP is 994. TSH is 0.247. Troponin is 0.04. Initial troponin is 0.19. She has the following diagnoses: 1. Zbp-UZ-ygvdmjnsy myocardial infarction. 2. Decompensated congestive heart failure. 3. Left bundle branch block. 4. Wide-complex tachycardia. 5. Hypokalemia. 6. Hyperglycemia. 7. Dyspnea. 8. Polycythemia. 9. Intraventricular conduction delay. DISCUSSION: Due to the patient's multiple risk factors and non-STEMI, left heart catheterization is medically necessary. She is currently asymptomatic, hemodynamically stable. Plan for left heart catheterization on 02/26/2018. In the meantime, we will continue aspirin, Lasix, Aldactone, heparin drip. Pop Vizcaino MD AW/ , 02:15 PM , 02:22 PM
[2018-02-26] MEDS: Insulin NovoLIN Regular Correctional Sugar Inj SQ SCH ×5 (00:10→23:17)
[2018-02-26 04:02] LABS: Baso % (Auto) 0.2 % (0.0-2.0); Eos % (Auto) 0.1 % (0.0-4.0); Hematocrit 40.8 % (35.0-46.0); Hemoglobin 13.9 gm/dL (11.6-15.3); Lymph # (Auto) 1.9 th/mm3 (1.0-4.8); Lymph % (Auto) 16.5 % (9.0-44.0); Mean Corpuscular HGB Conc 34.1 % (32.0-36.0); Mean Corpuscular Hemoglobin 33.2 pg (27.0-34.0); Mean Corpuscular Volume 97.5 fL (80.0-100.0); Mono # (Auto) 1.1 th/mm3 (0.0-0.9); Mono % (Auto) 9.1 % (0.0-8.0); Neut # (Auto) 8.5 th/mm3 (1.8-7.7); Neut % (Auto) 74.1 % (16.0-70.0); Platelet Count 197 th/mm3 (150-450); Red Blood Count 4.18 mil/mm3 (4.00-5.30); Red Cell Distribution Width 12.9 % (11.6-17.2); White Blood Count 11.5 th/mm3 (4.0-11.0)
[2018-02-26 04:26] LABS: Albumin 3.2 g/dL (3.4-5.0); Anion Gap 8 meq/L (5-15); Aspartate Aminotransferase 17 U/L (15-37); Blood Urea Nitrogen 25 mg/dL (7-18); Calcium 8.1 mg/dL (8.5-10.1); Carbon Dioxide 25.2 meq/L (21.0-32.0); Chloride 109 meq/L (98-107); Glomerular Filtration Rate 77 mL/min (>89); Glucose,Random 114 mg/dL (74-106); Magnesium 1.9 mg/dL (1.5-2.5); Potassium 3.2 meq/L (3.5-5.1); Sodium 142 meq/L (136-145)
[2018-02-26 04:31] LABS: Alanine Aminotransferase 28 U/L (10-53); Alkaline Phosphatase 42 U/L (45-117); Phosphorus 3.3 mg/dL (2.5-4.9); Total Protein 6.5 g/dL (6.4-8.2)
[2018-02-26] MEDS: Chlorhexidine Gluconate 2% 1 Pack (2 Cloths) TOPICAL SCH (04:51)
[2018-02-26] MEDS: Sod Chloride 0.9% Inj 1,000 ML IV.CONT SCH (07:24)
[2018-02-26] MEDS: Spironolactone 25 MG Tablet PO SCH (08:25)
[2018-02-26] MEDS: Umeclindinium 62.5 MCG/Vilanterol 25 MCG Inhaler INH SCH (08:25)
[2018-02-26] MEDS: Lactobacillus Acidophilus/L. Spores Tablet PO SCH ×3 (08:54→18:22)
[2018-02-26] MEDS: Famotidine PF Inj 20 MG/2 ML Vial IV.PUSH SCH (08:54)
[2018-02-26] MEDS: Fenofibrate 145 MG Tablet PO SCH (08:55)
[2018-02-26 11:42] LABS: Calcium 8.9 mg/dL (8.5-10.1); Carbon Dioxide 24.8 meq/L (21.0-32.0); Potassium 3.7 meq/L (3.5-5.1); Troponin I 0.03 ng/mL (0.02-0.05)
--- NOTE | 2018-02-26 11:45 | P.PN ---
Subjective Interval history: F/U CHF. NOt seen Physical Exam Vital signs: Vital Signs 02/25/18 11:55 02/25/18 12:00 02/25/18 13:00 Temperature 98.5 F Pulse Rate 96 H 103 H 115 H Respiratory Rate 21 31 H 25 H Blood Pressure 113/60 122/59 L Pulse Oximetry 95 93 L 02/25/18 14:00 02/25/18 15:00 02/25/18 15:01 Temperature Pulse Rate 108 H 107 H 114 H Respiratory Rate 32 H 40 H 37 H Blood Pressure 120/57 L 123/65 Pulse Oximetry 92 L 93 L 94 L 02/25/18 15:31 02/25/18 16:00 02/25/18 17:00 Temperature 98.4 F Pulse Rate 106 H 105 H 107 H Respiratory Rate 25 H 26 H 28 H Blood Pressure 110/59 L 114/55 L Pulse Oximetry 92 L 95 02/25/18 18:00 02/25/18 19:00 02/25/18 20:00 Temperature 98.0 F Pulse Rate 97 H 102 H 93 H Respiratory Rate 22 33 H 23 Blood Pressure 110/64 122/72 119/67 Pulse Oximetry 94 L 96 93 L 02/25/18 20:58 02/25/18 21:00 02/25/18 21:41 Temperature Pulse Rate 97 H 98 H 100 H Respiratory Rate 22 17 29 H Blood Pressure 120/67 128/61 Pulse Oximetry 96 100 96 02/25/18 22:00 02/25/18 22:57 02/25/18 23:00 Temperature Pulse Rate 104 H 103 H 100 H Respiratory Rate 22 25 H 33 H Blood Pressure 111/54 L 109/59 L 112/58 L Pulse Oximetry 92 L 94 L 94 L 02/26/18 00:00 02/26/18 01:00 02/26/18 02:00 Temperature 98.2 F Pulse Rate 87 90 90 Respiratory Rate 23 22 23 Blood Pressure 109/59 L 95/53 L 115/65 Pulse Oximetry 91 L 94 L 92 L 02/26/18 03:00 02/26/18 04:00 02/26/18 05:00 Temperature Pulse Rate 81 78 86 Respiratory Rate 18 13 23 Blood Pressure 99/55 L 103/55 L 116/66 Pulse Oximetry 92 L 92 L 95 02/26/18 06:17 02/26/18 06:26 02/26/18 06:27 Temperature Pulse Rate 95 H 98 H 95 H Respiratory Rate 23 9 L Blood Pressure 116/69 114/70 Pulse Oximetry 96 97 97 02/26/18 07:00 02/26/18 07:59 02/26/18 08:00 Temperature 98.6 F Pulse Rate 93 H 91 H 91 H Respiratory Rate 33 H 21 Blood Pressure 109/69 110/67 Pulse Oximetry 96 94 L 02/26/18 09:00 02/26/18 10:00 02/26/18 10:33 Temperature Pulse Rate 100 H 91 H 97 H Respiratory Rate 23 37 H 25 H Blood Pressure 132/77 106/52 L 117/63 Pulse Oximetry 94 L 94 L 96 Intake & Output 02/25/18 02/26/18 02/26/18 18:59 06:59 18:59 Intake Total 580 / 580 1511.2 / 1511.2 100 / 100 Balance 580 / 580 1511.2 / 1511.2 100 / 100 Weight 69 kg Intake: IV 100 / 100 1511.2 / 1511.2 100 / 100 NS Inj 1,000 ML @ 75 mls/hr IV. 1000 / 1000 CONT .[id number] [facility] Rx#: [id number] Levaquin 500 mg Premix Inj 500 100 / 100 mg In 100 ml @ 100 mls/hr IV. SIG Q24H [facility] Rx#:[id number] MVI-12 Inj 10 ML Thiamine Inj 511.2 / 511.2 100 MG Folvite Inj 1 MG In NS Inj 500 ML @ 125 mls/hr IV.SIG Q24H [facility] Rx#:[id number] KCl 20 mEq Premix Inj 20 meq In 100 / 100 100 ml @ 50 mls/hr IV.SIG Q2H [facility] Rx#:[id number] Oral 480 / 480 0 / 0 Other: # Voids 6 4 Date of Last Bowel Movement 02/26/18 # Bowel Movements 0 0 Narrative: GENERAL: NAD, A&Ox3 CARDIOVASCULAR: Regular rate and rhythm without murmurs, gallops, or rubs. RESPIRATORY: Breath sounds equal bilaterally. No accessory muscle use. Bilateral crackles at bases. GASTROINTESTINAL: Abdomen soft, non-tender, nondistended. MUSCULOSKELETAL: No cyanosis, or edema. SKIN: Warm and dry. NEURO: No focal neurological deficits. Results - Labs CBC & Chem 7: 02/26/18 03:25 02/26/18 10:54 Laboratory Results - last 24 hr 02/25/18 02/25/18 02/25/18 11:55 12:35 17:09 WBC RBC Hgb Hct MCV MCH MCHC RDW Plt Count MPV Neut % (Auto) Lymph % (Auto) Rankin % (Auto) Eos % (Auto) Baso % (Auto) Neut # (Auto) Lymph # (Auto) Rankin # (Auto) Eos # (Auto) Baso # (Auto) WBC Differential Differential Comment APTT 28.1 D Sodium Potassium Chloride Carbon Dioxide Anion Gap BUN Creatinine Estimated GFR POC Glucose 128 H Random Glucose Lactic Acid 4.6 H* Calcium Phosphorus Magnesium Total Bilirubin AST ALT Alkaline Phosphatase Troponin I B-Natriuretic Peptide Total Protein Albumin 02/25/18 02/25/18 02/26/18 17:16 19:45 01:19 WBC RBC Hgb Hct MCV MCH MCHC RDW Plt Count MPV Neut % (Auto) Lymph % (Auto) Rankin % (Auto) Eos % (Auto) Baso % (Auto) Neut # (Auto) Lymph # (Auto) Rankin # (Auto) Eos # (Auto) Baso # (Auto) WBC Differential Differential Comment APTT 26.7 Sodium Potassium Chloride Carbon Dioxide Anion Gap BUN Creatinine Estimated GFR POC Glucose 107 111 H Random Glucose Lactic Acid Calcium Phosphorus Magnesium Total Bilirubin AST ALT Alkaline Phosphatase Troponin I B-Natriuretic Peptide Total Protein Albumin 02/26/18 02/26/18 02/26/18 03:25 03:25 03:25 WBC 11.5 H RBC 4.18 Hgb 13.9 Hct 40.8 MCV 97.5 MCH 33.2 MCHC 34.1 RDW 12.9 Plt Count 197 MPV 8.0 Neut % (Auto) 74.1 H Lymph % (Auto) 16.5 Rankin % (Auto) 9.1 H Eos % (Auto) 0.1 Baso % (Auto) 0.2 Neut # (Auto) 8.5 H Lymph # (Auto) 1.9 Rankin # (Auto) 1.1 H Eos # (Auto) 0.0 Baso # (Auto) 0.0 WBC Differential . Differential Comment Auto diff final APTT Sodium 142 Potassium 3.2 L Chloride 109 H Carbon Dioxide 25.2 Anion Gap 8 BUN 25 H Creatinine 0.75 Estimated GFR 77 L POC Glucose Random Glucose 114 H Lactic Acid 1.1 Calcium 8.1 L Phosphorus 3.3 Magnesium 1.9 Total Bilirubin 0.5 AST 17 ALT 28 Alkaline Phosphatase 42 L Troponin I B-Natriuretic Peptide Total Protein 6.5 D Albumin 3.2 L D 02/26/18 02/26/18 02/26/18 03:25 10:54 10:54 WBC RBC Hgb Hct MCV MCH MCHC RDW Plt Count MPV Neut % (Auto) Lymph % (Auto) Rankin % (Auto) Eos % (Auto) Baso % (Auto) Neut # (Auto) Lymph # (Auto) Rankin # (Auto) Eos # (Auto) Baso # (Auto) WBC Differential Differential Comment APTT 34.4 H D Sodium 143 Potassium 3.7 Chloride 108 H Carbon Dioxide 24.8 Anion Gap 10 BUN 24 H Creatinine 0.86 Estimated GFR 66 L POC Glucose Random Glucose 97 Lactic Acid Calcium 8.9 D Phosphorus Magnesium Total Bilirubin AST ALT Alkaline Phosphatase Troponin I 0.03 B-Natriuretic Peptide 571 H Total Protein Albumin 02/26/18 10:55 WBC RBC Hgb Hct MCV MCH MCHC RDW Plt Count MPV Neut % (Auto) Lymph % (Auto) Rankin % (Auto) Eos % (Auto) Baso % (Auto) Neut # (Auto) Lymph # (Auto) Rankin # (Auto) Eos # (Auto) Baso # (Auto) WBC Differential Differential Comment APTT 32.4 H Sodium Potassium Chloride Carbon Dioxide Anion Gap BUN Creatinine Estimated GFR POC Glucose Random Glucose Lactic Acid Calcium Phosphorus Magnesium Total Bilirubin AST ALT Alkaline Phosphatase Troponin I B-Natriuretic Peptide Total Protein Albumin - Imaging ITS Impressions Chest X-Ray 02/25/18 06:35 CONCLUSION: Persistent but improving increased interstitial markings likely related to improving edema. - Procedures for [facility] Assessment and Plan - Plan 67-year-old female admitted secondary to respiratory distress with known history of congestive heart failure Pulmonary edema Systolic congestive heart failure exacerbation Dilated cardiomyopathy Left bundle branch block Elevated BNP Continue diuresis Follow renal function Continue oxygen support as needed Possibility of heart catheterization soon Probiotics Acute hypoxemic respiratory failure No evidence of COPD exacerbation at this time No evidence of anaphylaxis at this point Patient jittery from steroids and request discontinuation We will stop steroids today and follow clinically for any evidence of COPD flareup Etiology for respiratory failure could be related to pulmonary edema and CHF exacerbation Consider dc Levaquin Daily alcohol use Vitamin supplementation Monitor for DTs Hyperglycemia Follow blood sugars Steroids may increase blood sugars Steroids discontinued, as above DVT prophylaxis Lovenox SCDs
[2018-02-26] MEDS ORDERED: Heparin/NS PF Inj 1,000 ML ONE (11:59)
[2018-02-26] MEDS ORDERED: Lidocaine PF 1% Inj 30 ML Vial ONE (12:03)
--- NOTE | 2018-02-26 13:04 | CATHPROC ---
[employer] HIS Report Study Information Study Number Admission Scheduled Start Study Start [id number] Feb 24 2018 1:30PM 02/26/2018 Feb 26 2018 11:52AM [place] [facility] Cardiac Catheterization Admit Source Facility Department Emergency department [facility] Physician and Clinical Staff Initial Pop Bañuelos Cheesemaker Jerad Carcamo,RN Recorder Aruna Gonzalez,HOUSE WIRER TECH2 Scrub Jeimy Costello,IRON POURER TECH2 Procedures Performed Procedure Location (Site) Vessel Name Coronary Angiograms LCA Left Coronary Coronary Angiograms RCA Right Coronary LV Gram-hand inj. LV LV Ventricle Equipment Time Salad Bar Clerk Description Size Mfg Part Number Used/Scraped CATHETER, FR5 SWAN PETERSON 12:27 [employer] FR 5 [id number] *[id number] Used MONITOR TRANSDUCER, TRUWAVE [id number] 11:52 [employer]Jam WOLF * Used W/STOCKCOCK *[id number] 538-420 *[id number] 538-421 *[id number] 11:52 [employer] BLANKET,WARM AIR CCL * Used *[id number] 11:52 [employer] PACK, CCL CUSTOM * Used *[id number] 11:52 [employer] PACER PEN, SKIN DUAL W/ RULER * Used *[id number] 12:26 [employer] MEDICAL SHEATH, FR5.5 PRELUDE 11CM FR 5 [id number] Used [id number] 11:52 [employer] MEDICAL WIRE, 3MMJ .035 180CM 180CM Used *[id number] 11:52 [employer] MANIFOLD, 4 PORT * Used *[id number] 11:52 [employer] OMNIPAQUE, 350 MG, 150ML 150ML [id number] Used [id number] 11:52 [employer] MEDICAL SHEATH, FR4 TERUMO (10CM) FR 4 Used *[id number] History: Current Medications Medication Dosage/Unit Route Frequency Last Date/Time Taken Statins (any) Albuterol ASA HCTZ History: Allergies Allergy Reaction codeine AGITATION neomycin ITCH bacitracin ITCH gramicidin D ITCH polymyxin B ITCH penicillin G HIVES succinylcholine PSEUDOCHOLINESTERASE DEFICIENCY triamterene Swelling of Lip/Tongue/Throat clarithromycin Dizziness History: Risk Factors Family History of Hypertension Dyslipidemia Previous MO Previous Heart Failure Premature CAD No Yes No No No Prior Valve Prior PCI Prior CABG Surgery No No No Cerebrovascular Peripheral Artery Chronic Lung On Dialysis Diabetes Disease Disease Disease No No No Yes No History: Symptoms/Diagnosis Selection Items BASILIO SOB History: Stress Tests Stress or Imaging Studies Performed No History: Other Disease Selection Items Cancer History: Other Current Smoker Method Quit Packs a Day Years Used Pack Years No Cigarettes 16 Years Ago 2 30 60 Labs Hgb (g/dl) Hct (%) RBC (MIL/MM3) WBC (l/cumm) Platelets (thousands) 11.60-17.00 35.00-51.00 4.00-5.90 4.00-11.00 150.00-450.00 13.0 40 4.1 11.5 147 Glucose (mg/dl) BUN (mg/dl) Creatinine (mg/dl) BUN:Creatinine (1:x) 74.00-106.00 7.00-18.00 0.50-1.30 10.00-20.00 114 25 0.7 35.7 Na (meq/l) K (meq/l) 136.00-145.00 3.50-5.10 142 3.2 INR (PTT:PT) 0.90-1.10 1.1 Troponin I (ng/ml) CPK-MB (ng/ML) 0.02-0.05 0.50-3.60 0.19 Not Drawn Medication Medication Total Dose (Bolus/Oral) Medication Total Dosage/Unit 1% XYLOCAINE 20 mL LASIX 40 mg Medications (Bolus/Oral) Medication Time Given Dosage/Unit Administered By Reason 02/26/2018 12:23:01 1% XYLOCAINE 20 mL Pop Vizcaino PM Patient arrived on 20 mL 1% XYLOCAINE given by Pop Vizcaino in Right Groin via Subcutaneous. Orde red by Pop Vizcaino. LASIX 02/26/2018 1:01:40 PM 40 mg Jerad Carcamo 40 mg LASIX given in lab by Jerad Carcamo, RN in Left Antecubital via Peripheral IV. Ordered by Pop Madrigal. Medication (Drip) Medication Time Given Dosage/Unit Concentration/Unit Diluent (ml) Solution 02/26/2018 11:57:16 IV Solutions 0 mL (IV) 500 NaCl .9 AM Patient arrived on IV Solutions in Left Antecubital via Peripheral IV. Pump/Drip Flow = 20 ml/hr usin g NaCl .9. Initial Case Assessment Cardiovascular HR Rhythm NIBP Chest Pain 101 bbb 131/90 0 Circulatory - Right Pulses Dorsalis Pedis Femoral 2 3 Scale (0,1,2,3,4,d) Circulatory - Left Pulses Dorsalis Pedis Femoral 2 3 Scale (0,1,2,3,4,d) Neurological State Oriented to time-place- Alert Moves all extremities person Respiration - General Respiration Rate SpO2 (%) (B/min) 12 94 Final Case Assessment Cardiovascular HR Rhythm NIBP Chest Pain 101 bbb 122/78 0 Circulatory - Right Pulses Dorsalis Pedis Femoral 2 3 Scale (0,1,2,3,4,d) Circulatory - Left Pulses Dorsalis Pedis Femoral 2 3 Scale (0,1,2,3,4,d) Neurological State Oriented to time-place- Alert Moves all extremities person Respiration - General Respiration Rate SpO2 (%) O2 (lpm) (B/min) 22 93 3 Chronological Log Time Study Chronological Log 11:51:49 Patient arrived via Bed. 11:51:50 Patient Name, D.O.B, / Armband Verified By R.N. 11:51:51 Consent signed by the physician and the patient and verified by the [facility] staff. 11:51:51 Pre-op and post- op instructions given; patient acknowledges understanding of instructions. 11:51:52 Verbal Stimulation=2 Physical Stimulation=2 Airway=2 Respiration=2 TOTAL=8. (0=absent, 1=li mited, 2=present) 11:57:06 Presedation assessment performed by [facility] RN. 11:57:09 Patient has been NPO for More than 6Hrs. 11:57:11 Skin Breakdown-none per patient 11:57:13 Wilian Prominences Protected 11:57:15 A # 20 IV was noted in the Antecubital (left). Grade = 0 11:57:16 Patient arrived on IV Solutions in Left Antecubital via Peripheral IV. Pump/Drip Flow = 20 ml/hr using NaCl .9. 11:57:18 History and physical on the chart or being dictated. Assessment: Initial Case, YZ=516 BPM, Rhythm=bbb, YHHP=627/90 mmhg, Chest Pain=0 Right Pulses: Miguelito Ped=2, Femoral=3 11:57:20 Left Pulses: Miguelito Ped=2, Femoral=3 Neurological: State=Alert, Ox3, AGUSTIN Respiration: Resp=12 B/min, SpO2=94 % 11:57:25 Bilateral groins prepped with 2% chlorhexidine, and draped after a 3 minute waiting time. Vitals capture started with the following parameters, Patient=Adult, Interval=5 min, Initial Pr bwdwvk=097 mmHg, 11:58:48 Deflation Rate=5 mmHg, Cuff placed on Left Arm 11:59:18 YD=008 bpm, NKNG=958/90 mmhg, SpO2=85.0 %, Resp=24 B/min 11:59:39 Reference ECG taken 12:03:27 Pressure channel 1 zeroed. 12:04:23 HR=97 bpm, NEGI=303/80 mmhg, SpO2=94.0 %, Resp=16 B/min 12:09:03 MD paged 12:09:22 UI=789 bpm, YNJH=868/83 mmhg, SpO2=91.0 %, Resp=10 B/min 12:09:27 MD responded 12:14:25 HR=94 bpm, RTIA=994/70 mmhg, SpO2=93.0 %, Resp=16 B/min 12:19:24 HR=98 bpm, TEMB=626/81 mmhg, SpO2=93.0 %, Resp=14 B/min 12:20:42 MD arrived. Time Out. Correct patient, correct procedure, correct physician, labs, allergies, and equipment verified with labeling strategist 12:21:51 team present. Fire risk assesment completed (see hard stop sheet for coding). Time Out Conc urred by MD and individual staff in procedure. 12:22:59 Case Start Patient arrived on 20 mL 1% XYLOCAINE given by Pop Vizcaino in Right Groin via Subcutaneous . Ordered by 12:23:01 Pop Vizcaino. 12:23:17 Access site was Right Femoral Artery. 12:23:24 A SHEATH, FR4 TERUMO (10CM) FR 4 was advanced into the Fem Art (right) using the Percutaneo us technique. 12:24:22 Access site was Right Femoral Vein. 12:24:25 DY=814 bpm, BTFP=804/82 mmhg, SpO2=96.0 %, Resp=19 B/min 12:24:30 A SHEATH, FR5.5 PRELUDE 11CM FR 5 was advanced into the Fem Vein (right) using the Percutan eous technique. 12:24:53 Saturation: Site=Ao (Aorta) , O2=97.2 %, Hgb=13 gm/dl, Condition=Condition 1. [facility] 12:25:39 A CATHETER, FR5 SWAN PETERSON MONITOR FR 5 was inserted via Fem Vein (right) Recorded Pressure: PCW, LF=368, Condition=Condition 1 12:26:12 (Pulmonary Capillary Wedge) PCW 45/46/40 Recorded Pressure: MPA, SX=742, Condition=Condition 1 12:26:27 (Main Pulmonary Artery) MPA 50/38/45 12:26:53 Saturation: Site=PA (Pulmonary Artery) , O2=65.3 %, Hgb=13 gm/dl, Condition=Condition 1. Us ed in calculation. Recorded Pressure: RV, DW=887, Condition=Condition 1 12:27:23 (Right Ventricle) RV 51/13/20 Recorded Pressure: RA, MN=490, Condition=Condition 1 12:27:35 (Right Atrium) RA 17/15/13 12:28:03 Saturation: Site=RA (Right Atrium) , O2=65.9 %, Hgb=13 gm/dl, Condition=Condition 1. Used i n calculation. 12:28:59 [place] Catheter Removed A JR 4.0 INFINITI CATHETER FR 4 was advanced over a wire. OMNIPAQUE, 350 MG, 150ML 150ML was us ed for 12:29:01 injections. Recorded Pressure: LV, GD=061, Condition=Condition 1 12:29:13 (Left Ventricle) LV 134/26/40 12:29:19 The LV was manually injected with 10 cc's and visualized. OMNIPAQUE, 350 MG, 150ML 150ML us ed. 12:29:26 IQ=198 bpm, DQFD=774/80 mmhg, SpO2=94.0 %, Resp=19 B/min Recorded Pressure: LV, Ao, SV=246, Condition=Condition 1 12:29:31 (Left Ventricle) LV 133/28/42, (Aorta) Ao 132/91/109 12:29:47 The RCA was injected and visualized at various angles. OMNIPAQUE, 350 MG, 150ML 150ML used . 12:29:55 Catheter was removed A JL 4.0 INFINITI CATHETER FR 4 was advanced over a wire. OMNIPAQUE, 350 MG, 150ML 150ML was us ed for 12:31:08 injections. 12:32:22 The LCA was injected and visualized at various angles. OMNIPAQUE, 350 MG, 150ML 150ML used . 12:34:25 GT=449 bpm, UXSJ=224/78 mmhg, SpO2=95.0 %, Resp=16 B/min 12:34:25 Catheter was removed 12:34:30 Activated Clotting Time Drawn 12:35:02 Case End (Physician broke scrub) 12:35:57 ACT (Normal Range 90-180) = 92 12:38:41 Arterial Sheath removed; pressure applied to access site. 12:39:26 ZN=004 bpm, KSHK=087/79 mmhg, SpO2=92.0 %, Resp=22 B/min 12:44:21 XC=618 bpm, KVPT=511/85 mmhg, SpO2=91.0 %, Resp=20 B/min 12:48:34 Venous Sheath removed; pressure applied to access site. 12:49:24 HR=98 bpm, XWSP=056/78 mmhg, SpO2=95.0 %, Resp=22 B/min, Pain=0, Deepak=10, Cochran=2 12:54:25 NF=820 bpm, LLOL=185/78 mmhg, SpO2=94.0 %, Resp=24 B/min 12:57:05 Hemostasis obtained. 12:57:15 Sterile dressing applied to site 12:58:26 No case complications noted. 12:58:28 Cine recording checked. Assessment: Final Case, NH=046 BPM, Rhythm=bbb, EMIH=744/78 mmhg, Chest Pain=0 Right Pulses: Miguelito Ped=2, Femoral=3 12:58:31 Left Pulses: Miguelito Ped=2, Femoral=3 Neurological: State=Alert, Ox3, AGUSTIN Respiration: Resp=22 B/min, SpO2=93 %, O2=3 lpm 12:59:24 QTPU=263/85 mmhg 13:01:40 40 mg LASIX given in lab by Jerad Carcamo, RN in Left Antecubital via Peripheral IV. Ordered by Pop Vizcaino. 13:03:10 Patient moved to bed 13:03:17 A Left and Right Heart Cath was performed. 13:04:28 Patient tansported to [facility]. End Study - Contrast Media Used In Study Contrast Total Opened (mL) Total Used (mL) Total Wasted (mL) Omnipaque 50 50 0 End Study - Maximum Contrast Load Max Contrast Load (mL) 492.9 End Study - Radiation Exposure Fluoro Time (minutes) 2.0 End Study - Sheaths Sheaths Pulled By Sheath Hold Time (min) Jeimy Costello End Study - Patient Disposition Complications Transferred To Interventional Outcome No Critical Care Bed No attempt made
[2018-02-26] MEDS ORDERED: Morphine Inj 4 MG/ML Vial ONE (13:24)
[2018-02-26] MEDS ORDERED: Etomidate Inj 40 MG/20 ML Vial IV.PUSH ONE (13:26)
[2018-02-26] MEDS ORDERED: Midazolam Inj 5 MG/ML 1 ML Vial ONE (13:27)
[2018-02-26] MEDS ORDERED: Sodium Bicarbonate 8.4% Inj 50 MEQ/50 ML Syringe ONE (13:33)
--- NOTE | 2018-02-26 13:34 | MR ---
cc: Pop Vizcaino MD DATE: 02/26/2018 PROCEDURES: Right heart catheterization, left heart catheterization, left ventriculography, coronary angiography. INDICATIONS FOR PROCEDURE: Non-STEMI, cardiomyopathy, decompensated congestive heart failure, multiple cardiac risk factors. FINDINGS: The patient was brought to the cardiac catheterization laboratory, prepped and draped in the usual sterile fashion. Ten mL of 1% lidocaine was used to locally anesthetize the right common femoral artery. A 4-Bhutanese sheath was placed in right common femoral artery and a 6-Bhutanese sheath placed in right common femoral vein. Right heart catheterization was performed first the following findings: Pulmonary capillary wedge pressure of 45/46/40, PA pressure 50/38/45, RV pressure 51/13-20, RA pressure 17/15-13. On 3 liters, cardiac output by Gomez is 3.9 liters per minute, cardiac index is 2.2 liters per minute per m2. SVR is 1991.4 Dynes. On 3 liters, the femoral artery sat 97.2%, PA sat 65.3%, RA sat 65.9%. Left heart catheterization was then performed with a 4-Bhutanese JR4 and JL4 catheter with the following findings: LV pressure is 133/25-30, EF 25%. Left ventricle was at least moderate to severely enlarged fluoroscopically. There is global hypokinesis, EF approximately 25%. The right coronary artery was large and dominant. There is no significant disease angiographically. The left main coronary artery is short and has no significant disease angiographically. Left circumflex vessel has no significant disease angiographically. The first obtuse marginal vessel is a medium size vessel, 2.25 mm in diameter with no significant disease angiographically. It bifurcates proximally. Both branches have no significant disease angiographically. The remainder of the AV groove left circumflex vessel has no significant disease angiographically. LAD is large and transapical and has no significant disease angiographically. There is a large ramus intermedius vessel, reference vessel diameter of 3 mm with no significant disease angiographically. CONCLUSION: 1. Angiographically no significant coronary artery disease in a right dominant system as detailed above. 2. Dilated nonischemic cardiomyopathy, ejection fraction 25% with markedly elevated left ventricular end-diastolic pressure equal to 30 mmHg as detailed above. Markedly elevated pulmonary capillary wedge pressure and moderate pulmonary hypertension. RECOMMENDATIONS: 1. I strongly advised the patient to stop smoking. 2. We will need to continue diuresis and adjust diuretics. Possibly may need inotropes to achieve euvolemic status. If the patient could not be managed medically, may need to consider transfer for LVADs placement. So far she is having difficulty tolerating some of the diuretics. Will also contact case management to have the patient be possibly referred and/or released for outpatient followup for heart transplant evaluation. MD LELAND Gong/jose , 12:43 PM , 12:53 PM
[2018-02-26] MEDS ORDERED: Propofol Inj 500 MG/50 ML Vial ONE (13:38)
[2018-02-26] MEDS ORDERED: fentaNYL 10 mcg/mL Premix Drip 2,500 MCG/250 ML BAG IV.SIG PRN (13:45)
--- NOTE | 2018-02-26 13:51 | P.PNCC ---
Subjective Subjective Remarks/Hospital Course: Patient is a 67-year-old female with previous history of COPD, history of breast cancer, status post lumpectomy, who presented to the emergency department at [facility] for acute shortness shortness of breath. She has a history of COPD and about 2 months ago had similar episode while she was jogging. Today she states that after brushing her teeth, she acutely became short of breath where she had to sit down to catch her breath and EMS was called. She had been given albuterol nebulizers by EMS. She denies any cardiac history and specifically no history of CHF. Denies fever or productive cough. Patient was very short of breath in the emergency department and hence was placed on BiPAP. She was given Ativan for anxiety. Patient was noted to have developed urticaria on her legs-unclear whether this happened in the ED after medications were given. Due to possibility of allergic reaction treatment was initiated including epinephrine, Benadryl, Zantac and nebulizers were continued with improvement in symptoms. Chest x-ray showing signs of pulmonary edema and IV Lasix 40 mg was given in the ER. Lab work shows a BNP 1726. EKG showed significant sinus tachycardia with a left bundle branch block on initial EKG, ventricular rate was 150's. Critical care medicine was requested to admit the patient I evaluated the patient in the C. Patient is anxious mild to moderately short of breath. She again describes sudden onset shortness of breath which was very severe. But this appears like flash pulmonary edema/CHF. Patient will be placed on scheduled Lasix. Due to new onset CHF, and left bundle branch block which is probably new, I have consulted cardiology. I did a bedside echo which shows left ventricular ejection fraction approximately 20-25 % with dilated LV and global LV dysfunction. Formal echo is pending at this time. patient was also noted to be hyperglycemic and I have ordered a hemoglobin A1c. 02/26: Critical care medicine was reconsulted today after cardiac catheterization. I am told that patient does not have significant coronary artery disease. Reconsult was for severe respiratory distress and hypoxia. On my evaluation patient is on BiPAP 12/5 increased to 15/5, FiO2 60%. Patient received 40 mg of IV Lasix and I gave 4 mg of IV morphine with no improvement. Patient still breathing about 40-50 breaths/min very tight wheezing with diminished air entry and basilar crackles. Patient is in extreme respiratory distress and appears to be heading to cardiopulmonary arrest. Patient was intubated and placed on mechanical ventilation. Received total of 80 mg of IV Lasix without adequate response. I discussed with Dr. Vizcaino there is no significant coronary artery disease. However patient was in severe left heart failure with PCWP 45 on right heart catheterization. Start aggressive diuresis with Bumex infusion start milrinone for inotropic support. Place art line, central line. Dr. Vizcaino has consulted case management for transfer to tertiary care center for heart transplant evaluation Objective Vital Signs / I&O: Vital Signs 02/25/18 14:00 02/25/18 15:00 02/25/18 15:01 Temperature Pulse Rate 108 H 107 H 114 H Respiratory Rate 32 H 40 H 37 H Blood Pressure 120/57 L 123/65 Pulse Oximetry 92 L 93 L 94 L 02/25/18 15:31 02/25/18 16:00 02/25/18 17:00 Temperature 98.4 F Pulse Rate 106 H 105 H 107 H Respiratory Rate 25 H 26 H 28 H Blood Pressure 110/59 L 114/55 L Pulse Oximetry 92 L 95 02/25/18 18:00 02/25/18 19:00 02/25/18 20:00 Temperature 98.0 F Pulse Rate 97 H 102 H 93 H Respiratory Rate 22 33 H 23 Blood Pressure 110/64 122/72 119/67 Pulse Oximetry 94 L 96 93 L 02/25/18 20:58 02/25/18 21:00 02/25/18 21:41 Temperature Pulse Rate 97 H 98 H 100 H Respiratory Rate 22 17 29 H Blood Pressure 120/67 128/61 Pulse Oximetry 96 100 96 02/25/18 22:00 02/25/18 22:57 02/25/18 23:00 Temperature Pulse Rate 104 H 103 H 100 H Respiratory Rate 22 25 H 33 H Blood Pressure 111/54 L 109/59 L 112/58 L Pulse Oximetry 92 L 94 L 94 L 02/26/18 00:00 02/26/18 01:00 02/26/18 02:00 Temperature 98.2 F Pulse Rate 87 90 90 Respiratory Rate 23 22 23 Blood Pressure 109/59 L 95/53 L 115/65 Pulse Oximetry 91 L 94 L 92 L 02/26/18 03:00 02/26/18 04:00 02/26/18 05:00 Temperature Pulse Rate 81 78 86 Respiratory Rate 18 13 23 Blood Pressure 99/55 L 103/55 L 116/66 Pulse Oximetry 92 L 92 L 95 02/26/18 06:17 02/26/18 06:26 02/26/18 06:27 Temperature Pulse Rate 95 H 98 H 95 H Respiratory Rate 23 9 L Blood Pressure 116/69 114/70 Pulse Oximetry 96 97 97 02/26/18 07:00 02/26/18 07:59 02/26/18 08:00 Temperature 98.6 F Pulse Rate 93 H 91 H 91 H Respiratory Rate 33 H 21 Blood Pressure 109/69 110/67 Pulse Oximetry 96 94 L 02/26/18 09:00 02/26/18 10:00 02/26/18 10:33 Temperature Pulse Rate 100 H 91 H 97 H Respiratory Rate 23 37 H 25 H Blood Pressure 132/77 106/52 L 117/63 Pulse Oximetry 94 L 94 L 96 Intake & Output 02/25/18 02/26/18 02/26/18 18:59 06:59 18:59 Intake Total 580 / 580 1511.2 / 1511.2 100 / 100 Balance 580 / 580 1511.2 / 1511.2 100 / 100 Weight 69 kg Intake: IV 100 / 100 1511.2 / 1511.2 100 / 100 NS Inj 1,000 ML @ 75 mls/hr IV. 1000 / 1000 CONT .[id number] GRACE Rx#: [id number] Levaquin 500 mg Premix Inj 500 100 / 100 mg In 100 ml @ 100 mls/hr IV. SIG Q24H GRACE Rx#:[id number] MVI-12 Inj 10 ML Thiamine Inj 511.2 / 511.2 100 MG Folvite Inj 1 MG In NS Inj 500 ML @ 125 mls/hr IV.SIG Q24H GRACE Rx#:[id number] KCl 20 mEq Premix Inj 20 meq In 100 / 100 100 ml @ 50 mls/hr IV.SIG Q2H PRN Rx#:[id number] Oral 480 / 480 0 / 0 Other: # Voids 6 4 Date of Last Bowel Movement 02/26/18 # Bowel Movements 0 0 Result Diagrams: 02/26/18 03:25 02/26/18 10:54 Objective Remarks: GENERAL: Well-developed elderly female in respiratory extremis breathing 45 breaths/min tachycardic in 150s SKIN: Warm HEAD: Atraumatic. Normocephalic. EYES: Pupils equal and round. ENT: Oral mucosa is moist airway patent NECK: Trachea midline. No JVD. CARDIOVASCULAR: Tachycardic, in 150s. No murmur appreciated. (Perviously EF about 20-25% on bedside Echo. Dilated LV) RESPIRATORY: Severe accessory muscle use. Air entry markedly diminished with severe expiratory wheezing and basilar crackles. Patient clearly in respiratory extremis GASTROINTESTINAL: Abdomen soft, non-tender MUSCULOSKELETAL: No obvious deformities. No clubbing. No cyanosis. 1+ pedal edema. NEUROLOGICAL: Very anxious and impending respiratory arrest neuro assessment but no obvious focal deficit Assessment and Plan - Problem List (1) CHF (congestive heart failure) Code(s): I50.9 - Heart failure, unspecified Status: Acute (2) Acute hypoxemic respiratory failure Code(s): J96.01 - Acute respiratory failure with hypoxia Status: Acute (3) COPD with acute exacerbation Code(s): J44.1 - Chronic obstructive pulmonary disease with (acute) exacerbation Status: Acute (4) Hyperglycemia Code(s): R73.9 - Hyperglycemia, unspecified Status: Suspected (5) LBBB (left bundle branch block) Code(s): I44.7 - Left bundle-branch block, unspecified Status: Acute (6) History of breast cancer Code(s): Z85.3 - Personal history of malignant neoplasm of breast Status: Chronic - Assessment and Plan Plan: NEURO: Daily alcohol use -Postintubation sedation with propofol and fentanyl -Supplement multivitamin thiamine due to history of daily alcohol use RESP: Acute hypoxemic respiratory failure Flash pulmonary edema COPD exacerbation -Emergently intubated and placed on mechanical ventilation -Slightly anterior airway intubated with glide scope -PRVC/AC. Ventilator bundle -Currently off Decadron -DuoNeb every 4 hours scheduled and as needed -(Previously in the ER received epinephrine, Benadryl, famotidine for possible allergic reaction) CV: Flash pulmonary edema Systolic heart failure, acute Dilated cardiomyopathy (? Alcohol related) Left bundle branch block Elevated BNP -Cardiac catheterization confirmed nonischemic cardiomyopathy, severely elevated wedge pressure PCWP 45 -Post cardiac catheterization developed severe pulmonary edema received 80 mg IV Lasix stat without adequate improvement -intubated and placed on mechanical ventilation -DC Lasix start Bumex infusion at 0.5 mg/h. Continue Aldactone 50 twice daily -Start milrinone for inotropic support. Start vasopressin if hypotensive, arterial line placement for hemodynamic monitoring -No beta-blockers due to acute decompensated heart failure -Bedside echo shows EF approximately 20-25% with dilated LV, global LV dysfunction, confirmed on formal echo -Her cardiomyopathy could be secondary to alcohol, Chemotherapy for breast cancer was approximately 17 years ago -Formal Echo: Severely dilated left ventricle. LVEF 20-25%. Global left ventricular dysfunction. [id number] mitral valve regurgitation. -Wide-complex tachycardia noted on EKG is most likely sinus tachycardia with left bundle branch block -Dr. Vizcaino has consulted case management today for evaluation for transplant at [facility] -Once hemodynamically stable and hypoxemia improved, may require transfer to ICU to ICU. (Active alcohol use may preclude a cardiac transplant. Await to hear from [facility]) -Consider Impellla support, if [facility] center accepts the patient, and patient is not improving with ionotropic support for now GI: -NPO, IV famotidine : -Monitor renal function closely. Place Goncalves catheter for strict hourly intake output -IV Bumex and Aldactone as above ID: -Discontinue Levaquin while using inotrope -Negative urine for Legionella antigen, influenza A and B. HEME: -Monitor CBC, coags ENDO: Hyperglycemia -Electrolyte replacement per protocol -Sliding scale insulin PROPH: -Bilateral lower extremity SCDs. IV famotidine. Resume chemical DVT prophylaxis with Lovenox LINES: -Utilize peripheral IVs, place central line and arterial line CCT 77 MIN discontinuously, excluding procedural time but including discussion with nursing staff Dr. Vizcaino and updating family Patient is very critical developed flash pulmonary edema requiring emergency intubation and mechanical ventilation. Her prognosis is poor given EF of 20% with severe LV failure pulmonary capillary wedge pressure of 45. Aggressive diuresis and inotropic support started. Case management evaluating for transfer to [facility] for transplant evaluation. 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 This may preclude cardiac transplant. For the same reason I will hold off on Impella support at this time Code Status: Full Discussed Condition With: Dr. Vizcaino
--- NOTE | 2018-02-26 14:27 | XR ---
EXAM DATE: 02/26/2018 2:23 PM EST AGE/SEX: 67 years / Female INDICATIONS: Post intubation. CLINICAL DATA: This is the patient's subsequent encounter. Patient reports that signs and symptoms h ave been present for 3 days and indicates a pain score of Nonresponsive. MEDICAL/SURGICAL HISTORY: Carcinoma, breast. Chronic obstructive pulmonary disease. . Lumpecto my. COMPARISON: [facility], CHEST 1V SINGLE AP, 02/25/2018. . FINDINGS: Endotracheal tube is present with tip 5 cm above the valeriano. Nasogastric tube descends into the stoma ch. There is coarse bilateral perihilar and basilar interstitial and alveolar opacity. Cardiac contou rs are grossly stable. CONCLUSION: Satisfactory support tube positioning. Likely developing parenchymal edema Electronically signed by: Kevon Branch MD 02/26/2018 2:25 PM EST
[2018-02-26] MEDS: Milrinone Inj 20 MG in Sodium Chlor 0.9% Inj 80 ML IV.CONT SCH (14:56)
[2018-02-26] MEDS ORDERED: Bumetanide Inj 25 MG/100 ML BAG IV.CONT SCH (15:00)
[2018-02-26] MEDS: Propofol 1000 mg/100 ml Inj 1,000 MG/100 ML BOTTLE IV.CONT PRN ×3 (15:00→23:43)
[2018-02-26 15:06] LABS: ABG Base Excess -1.1 mmol/L (-2-2); ABG PCO2 47 mmHg (38-42); ABG PO2 161 mmHG (61-120)
--- NOTE | 2018-02-26 15:33 | P.PCN ---
Date of procedure: 02/26/18 Pre-op diagnosis: Acute hypoxemic respiratory failure Post-op diagnosis: same Procedure: Endotracheal intubation The patient was noted to respiratory extremis impending respiratory arrest. The patient was positioned in the sniffing position and was already on BiPAP. Rapid sequence intubation initiated, patient administered 10 mg of IV Versed, 20 mg of IV Versed, 50 mg of IV rocuronium. Direct laryngoscopy with MAC 4 blade grade 2 view. Airway was anterior even though vocal cords could be visualized I was unable to pass the tube. Easily intubated with a glide scope # 4 blade on first attempt. The patient tolerated the procedure well with no immediate complications. CXR to be obtained stat Anesthesia: ROCIO Surgeon: Pamela Lund Estimated blood loss (mL): 0 Pathology: other (sputum) Condition: critical Disposition: ICU
--- NOTE | 2018-02-26 15:38 | P.PCN ---
Date of procedure: 02/26/18 Pre-op diagnosis: Cardiogenic shock Post-op diagnosis: same Procedure: Right subclavian central line placement Central line checklist completed, timeout completed. I wore a surgical cap, mask with protective eyewear, full gown and sterile gloves throughout the procedure. Right upper chest region was prepped using chlorhexidine scrub and draped in sterile fashion. Anesthesia was achieved over the vein using 1% lidocaine. The introducer needle was inserted into the right subclavian vein. Venous blood was withdrawn. The syringe was removed and a guidewire was advanced into the introducer needle. A small incision was made at the skin surface with a scalpel and the introducer needle was exchanged for a dilator over the guidewire. After appropriate dilation was obtained, the dilator was exchanged over the wire for a triple lumen, 7F, antibiotic coated central venous catheter. The wire was removed and the catheter was secured with StatLock in place at 18 cm. A sterile central line dressing was placed over the catheter at the insertion site. The patient tolerated the procedure without any hemodynamic compromise. At time of procedure completion, all ports aspirated and flushed properly. Post-procedure chest x-ray is pending at this time. Anesthesia: local Surgeon: Pamela Lund Estimated blood loss (mL): 2 Pathology: none sent Condition: critical Disposition: ICU
--- NOTE | 2018-02-26 15:40 | P.PCN ---
Date of procedure: 02/26/18 Pre-op diagnosis: Cardiogenic shock Post-op diagnosis: same Procedure: Right radial arterial line placement I wore a surgical cap, mask with protective eyewear, and sterile gloves throughout the procedure. Right radial region was prepped using chlorhexidine scrub and draped in sterile fashion. Anesthesia was achieved 1% lidocaine. The introducer needle was inserted into the right radial artery and arterial flash was obtained. The syringe was removed and a guidewire was advanced into the introducer needle, and the introducer needle was removed. The 16 cm 20-gauge arterial catheter was placed over the wire. The wire was removed and the catheter was secured with single suture, and a sterile central line dressing was placed over the catheter at the insertion site. The patient tolerated the procedure without any hemodynamic compromise. Good arterial waveform obtained Anesthesia: local Surgeon: Pamela Lund Estimated blood loss (mL): 1 Pathology: none sent Condition: critical Disposition: ICU
--- NOTE | 2018-02-26 15:50 | XR ---
EXAM DATE: 02/26/2018 3:47 PM EST AGE/SEX: 67 years / Female INDICATIONS: Central line placement. CLINICAL DATA: This is the patient's subsequent encounter. Patient reports that signs and symptoms h ave been present for 2 days and indicates a pain score of Nonresponsive. MEDICAL/SURGICAL HISTORY: None. None. COMPARISON: [facility], CHEST 1V SINGLE AP, 02/26/2018. . FINDINGS: The ET tubes in good position. The nasogastric tubes in good position. There is a right subclavian ce ntral line catheter tip overlies the SVC. There is diffuse interstitial prominence suggesting congestive failure. This is similar to the previo us of 02/26/2018 time that 0148 hours. CONCLUSION: New right subclavian line in good position without evidence of pneumothorax. Electronically signed by: Franklin Mark MD 02/26/2018 3:49 PM EST
[2018-02-26 15:59] LABS: VBG Base Excess 3.2 mmol/L (-2-2); VBG Blood Gas Oxygen Content 14.4 Vol % (9.0-17.0); VBG PCO2 52 mmHG (44-48); VBG PH 7.36 (7.360-7.400); VBG PO2 42 mmHG (35-40)
[2018-02-26] MEDS: Vasopressin Inj 40 UNIT in Dextrose 5% in Water Inj 98 ML IV.CONT PRN ×2 (16:30)
[2018-02-26] MEDS ORDERED: Iohexol 350 MG/ML 50 ML Vial (for Cath Lab) IVCONTRAST ONE (16:52)
[2018-02-26] MEDS: Mupirocin 2% Nasal Oint Topical Syringe EACH NARE SCH ×2 (16:54→22:00)
[2018-02-26] MEDS: Spironolactone 50 MG Tablet PO SCH (18:22)
[2018-02-26] MEDS: Multivitamin Inj 10 ML, Thiamine Inj 100 MG, Folic Acid Inj 1 MG in Sodium Chlor 0.9% I... IV.SIG SCH (18:22)
[2018-02-27] MEDS: Milrinone Inj 20 MG in Sodium Chlor 0.9% Inj 80 ML IV.CONT SCH ×2 (03:01→16:00)
--- NOTE | 2018-02-27 03:11 | P.PCN ---
Date of procedure: 02/27/18 Procedure: DATE: 02/27/18 PROCEDURE: Left radial arterial catheter placement INDICATION: Shock, requiring continuous hemodynamic monitoring. DETAILS OF PROCEDURE Chin test was performed and satisfactory collateral circulation was confirmed. The skin was cleansed with Chloraprep. Additional barrier precautions included large sterile drape, sterile gloves, sterile gown, face mask, and hat. Under direct ultrasound guidnce and on the third attempt, the artery was accessed with an Arrow kit. The guide wire was advanced. Using Seldinger technique 20 gauge arterial catheter was placed. The needle and guide wire were removed. The catheter was connected to a transducer line and flushed with saline. The video monitor displayed normal arterial wave forms. The catheter was secured with 2-0 silk. A sterile dressing with antibiotic disc was applied. ESTIMATED BLOOD LOSS: minimal COMPLICATIONS: None
[2018-02-27] MEDS: Vasopressin Inj 40 UNIT in Dextrose 5% in Water Inj 98 ML IV.CONT PRN ×2 (04:37)
[2018-02-27] MEDS: Chlorhexidine Gluconate 2% 1 Pack (2 Cloths) TOPICAL SCH (04:38)
[2018-02-27] MEDS: Propofol 1000 mg/100 ml Inj 1,000 MG/100 ML BOTTLE IV.CONT PRN ×3 (05:12→17:00)
[2018-02-27 05:25] LABS: Baso % (Auto) 0.3 % (0.0-2.0); Eos # (Auto) 0.1 th/mm3 (0.0-0.4); Eos % (Auto) 0.6 % (0.0-4.0); Hematocrit 41.4 % (35.0-46.0); Hemoglobin 14.3 gm/dL (11.6-15.3); Lymph # (Auto) 1.7 th/mm3 (1.0-4.8); Lymph % (Auto) 13.8 % (9.0-44.0); Mean Corpuscular HGB Conc 34.5 % (32.0-36.0); Mean Corpuscular Hemoglobin 33.2 pg (27.0-34.0); Mean Corpuscular Volume 96.1 fL (80.0-100.0); Mean Platelet Volume 7.6 fL (7.0-11.0); Mono # (Auto) 1.2 th/mm3 (0.0-0.9); Mono % (Auto) 9.5 % (0.0-8.0); Neut # (Auto) 9.3 th/mm3 (1.8-7.7); Neut % (Auto) 75.8 % (16.0-70.0); Platelet Count 245 th/mm3 (150-450); Red Blood Count 4.31 mil/mm3 (4.00-5.30); White Blood Count 12.3 th/mm3 (4.0-11.0)
[2018-02-27 05:51] LABS: Calcium 8.5 mg/dL (8.5-10.1); Carbon Dioxide 28.9 meq/L (21.0-32.0); Magnesium 2.4 mg/dL (1.5-2.5); Potassium 3.1 meq/L (3.5-5.1)
[2018-02-27] MEDS: Insulin NovoLIN Regular Correctional Sugar Inj SQ SCH ×3 (06:45→17:38)
[2018-02-27] MEDS: Potassium Chlor 40 mEq Premix 40 MEQ/100 ML PIGGYBACK IV.SIG PRN ×2 (06:46→11:00)
[2018-02-27] MEDS: Spironolactone 50 MG Tablet PO SCH ×2 (09:10→17:53)
[2018-02-27] MEDS: Lactobacillus Acidophilus/L. Spores Tablet PO SCH ×3 (09:11→17:34)
[2018-02-27] MEDS: Mupirocin 2% Nasal Oint Topical Syringe EACH NARE SCH (09:11)
[2018-02-27] MEDS: Fenofibrate 145 MG Tablet PO SCH (09:11)
[2018-02-27] MEDS: Umeclindinium 62.5 MCG/Vilanterol 25 MCG Inhaler INH SCH (09:12)
--- NOTE | 2018-02-27 12:37 | P.DIET ---
Nutritional Evaluation Type of nutrition evaluation: initial Screening comments: 02/27 NPO x3 days alert Objective - Diagnosis CHF, respiratory distress, BiPAP - Objective Body Mass Index: 24.6 % IBW: 120 (IBW = 120lb) Body Weight Used for Calculations: Actual (65kg) Energy Needs - Lower Range (kCal/kg): 25 Energy Needs - Upper Range (kCal/kg): 30 Lower Limit kCal/kg (kCals): 1,625 Upper Limit kCal/kg (kCals): 1,950 Lower Limit Protein Factor (Grams per Kg): 1.1 Upper Limit Protein Factor (Grams per Kg): 1.3 Lower Protein Needs (Protein): 72 Upper Protein Needs (Protein): 85 Dietitian Reviewed in Medical Record: Current diet, Curent medications, Intake & Output, Labs, Medical history Diet Order: NPO Objective Comments: PMH: breast CA, COPD, hx of MRSA Meds: fentanyl, novolin insulin, levophed, propofol Labs: K+ 3.1, BUN 19, GFR 65, POC glucose 189 162 Assessment Assessment: Pt currently at nutritional risk r/t NPO x3 days. Pt was intubated on 02/26 and on [facility] vent, s/p L radial arterial cath placement 02/27. Pts wt noted: CBW = 65kg. Consult RD when nutritional recommendations are needed. Labs reviewed, dietitian following. Recommendations: 1. Consult RD when nutritional recommendations are needed 2. Dietitian following Dietitian to Monitor: Lab values, Intake & Output, Weight change, Medical course
--- NOTE | 2018-02-27 15:09 | P.PNCA ---
Subjective Interval history: intubated, sedated Medications and Allergies Active Medications: Active Medications Acetaminophen (Tylenol) 650 mg PO Q6H PRN PRN Reason: PAIN 1-10 AND/OR FEVER >101F Albuterol (Duoneb Neb (Humaira)) 1 ampul NEB Q4HR NEB [facility] Last Admin: 02/27/18 07:51 Dose: 1 ampul Albuterol (Albuterol Neb (Prn)) 2.5 mg NEB Q4HR NEB PRN PRN Reason: SHORTNESS OF BREATH Aspirin (Aspirin Chew) 81 mg PO DAILY [facility] Last Admin: 02/27/18 09:11 Dose: 81 mg Chlorhexidine Gluconate (Chlorhexidine 2% Cloth) 3 pack TOPICAL DAILY@0400 [facility] Stop: 03/02/18 03:59 Last Admin: 02/27/18 04:38 Dose: 3 pack Chlorhexidine Gluconate (Chlorhexidine 2% Cloth) 3 pack TOPICAL DAILY@0400 PRN PRN Reason: Extra cloth needed Stop: 03/02/18 03:59 Dextrose (D50w Vial) 50 ml IV.PUSH UNSCH PRN PRN Reason: PER HYPOGLYCEMIA PROTOCOL Fenofibrate (Tricor) 145 mg PO DAILY [facility] Last Admin: 02/27/18 09:11 Dose: 145 mg Glucagon (Glucagon Inj) 1 mg OTHER PRN PRN PRN Reason: for Hypoglycemia Protocol Potassium Chloride (Kcl 40 Meq Premix Inj) 40 meq in 100 mls @ 25 mls/hr IV.SIG Q2H PRN PRN Reason: For Potassium 2.8 - 3.2 mEq/L Last Infusion: 02/27/18 10:34 Dose: Infused Potassium Chloride (Kcl 20 Meq Premix Inj) 20 meq in 100 mls @ 50 mls/hr IV.SIG Q2H PRN PRN Reason: For Potassium 3.3 - 3.5 mEq/L Last Infusion: 02/26/18 07:25 Dose: Infused Potassium Chloride (Kcl 40 Meq Premix Inj) 40 meq in 100 mls @ 25 mls/hr IV.SIG UNSCH PRN PRN Reason: For Potassium 3.3 - 3.5 mEq/L Potassium Phosphate 30 mmol/ (Sodium Chloride) 260 mls @ 42 mls/hr IV.SIG UNSCH PRN PRN Reason: SEE LABEL COMMENTS Sodium Phosphate 30 mmol/ (Sodium Chloride) 260 mls @ 42 mls/hr IV.SIG UNSCH PRN PRN Reason: For Phosphorus < 2.5 mg/dL Potassium Chloride (Kcl 20 Meq Premix Inj) 20 meq in 100 mls @ 50 mls/hr IV.SIG Q2H PRN PRN Reason: For Potassium 2.8 - 3.2 mEq/L Magnesium Sulfate 4 gm/ Sodium (Chloride) 100 mls @ 50 mls/hr IV.SIG UNSCH PRN PRN Reason: For Magnesium 0.9 - 1.1 mg/dL Magnesium Sulfate 2 gm/ Sodium (Chloride) 100 mls @ 50 mls/hr IV.SIG UNSCH PRN PRN Reason: For Magnesium 1.2 - 1.6 mg/dL Last Infusion: 02/27/18 03:22 Dose: Infused Propofol (Diprivan 1000 Mg/100 Ml Inj) 1,000 mg in 100 mls @ 2.07 mls/hr IV.CONT TITRATE PRN; Protocol PRN Reason: Per Protocol Last Admin: 02/27/18 11:46 Dose: 50 mcg/kg/min, 20.7 mls/hr Fentanyl (Fentanyl 10 Mcg/Ml Premix Drip) 2,500 mcg in 250 mls @ 5 mls/hr IV.SIG TITRATE PRN; Protocol PRN Reason: Per Protocol Last Titration: 02/27/18 10:35 Dose: 200 mcg/hr, 20 mls/hr Milrinone Lactate 20 mg/ (Sodium Chloride) 100 mls @ 7.76 mls/hr IV.CONT .[id number] [facility]; Protocol Last Admin: 02/27/18 03:01 Dose: 0.375 mcg/kg/min, 7.76 mls/hr Bumetanide (Bumex Inj) 25 mg in 100 mls @ 2 mls/hr IV.CONT .Q24H [facility] Last Infusion: 02/26/18 19:00 Dose: 0.5 mg/hr, 2 mls/hr Vasopressin 40 unit/ Dextrose 100 mls @ 1.5 mls/hr IV.CONT TITRATE PRN; Protocol PRN Reason: Per Protocol Last Admin: 02/27/18 04:37 Dose: 0.04 units/min, 6 mls/hr Norepinephrine Bitartrate (Levophed-Dextrose 4 Mg/250 Ml Drip) 4 mg in 250 mls @ 7.5 mls/hr IV.SIG TITRATE PRN; Protocol PRN Reason: Per Protocol Last Titration: 02/27/18 11:30 Dose: 6 mcg/min, 22.5 mls/hr Insulin Human Regular (Novolin R Correctional Sugar Inj) 0 units SQ Q6HR [facility]; Protocol Last Admin: 02/27/18 12:32 Dose: Not Given Lactobacillus Acidophilus (Lactinex) 1 tab PO TID [facility] Last Admin: 02/27/18 12:33 Dose: 1 tab Magnesium Oxide (Mag-Ox) 800 mg PO UNSCH PRN PRN Reason: For Magnesium 1.2 - 1.6 mg/dL Mupirocin (Bactroban 2% Nasal Oint) 1 applicatio EACH NARE BID [facility] Stop: 03/05/18 11:59 Last Admin: 02/27/18 09:11 Dose: 1 applicatio Potassium Bicarb/Potassium Chloride (K-Lyte Cl Eff) 50 meq PO UNSCH PRN PRN Reason: For Potassium 3.3 - 3.5 mEq/L Last Admin: 02/26/18 04:54 Dose: 50 meq Potassium Chloride (K-Dur) 20 meq PO DAILY [facility] Last Admin: 02/27/18 09:12 Dose: Not Given Potassium Phosphate (K-Phos Original) 2,000 mg PO Q4H PRN PRN Reason: Phosphorus Less Than 2.5 mg/dL Potassium Phosphate (K-Phos Original) 2,000 mg PO UNSCH PRN PRN Reason: SEE LABEL COMMENTS Sodium Chloride (Ns Flush) 2 ml IV.FLUSH BID [facility] Last Admin: 02/27/18 09:11 Dose: 2 ml Sodium Chloride (Ns Flush) 2 ml IV.FLUSH PRN PRN PRN Reason: FLUSH AFTER USING IV ACCESS Spironolactone (Aldactone) 50 mg PO BID@0900,1800 [facility] Last Admin: 02/27/18 09:10 Dose: 50 mg Terbutaline Sulfate (Brethine Inj) 1 mg SQ UNSCH PRN PRN Reason: For Extravasation Umeclidinium/Vilanterol (Anoro-Ellipta 62.5/25 Mcg Inh) 1 inhalation INH DAILY [facility] Last Admin: 02/27/18 09:12 Dose: Not Given Allergies Allergy/AdvReac Type Severity Reaction Status Date / Time bacitracin Allergy Severe ITCH Verified 02/24/18 11:01 clarithromycin Allergy Severe Dizziness Verified 02/24/18 11:04 codeine Allergy Severe AGITATION Verified 02/24/18 11:01 gramicidin D Allergy Severe ITCH Verified 02/24/18 11:01 neomycin Allergy Severe ITCH Verified 02/24/18 11:01 penicillin G Allergy Severe HIVES Verified 02/24/18 11:01 polymyxin B Allergy Severe ITCH Verified 02/24/18 11:01 succinylcholine Allergy Severe PSEUDOCHOLINESTERASE Verified 02/24/18 11:01 DEFICIENCY triamterene Allergy Severe Swelling Verified 02/24/18 11:04 of Lip/Tongue/Throat Home Medications Medication Instructions Recorded Confirmed Type albuterol sulfate [Ventolin HFA] 2 puff INHALATION Q4-6H PRN 02/24/18 02/24/18 History aspirin 81 mg PO DAILY 02/24/18 02/24/18 History doxycycline hyclate 50 mg PO DAILY 02/24/18 02/24/18 History fenofibrate 150 mg PO DAILY 02/24/18 02/24/18 History triamterene-hydrochlorothiazid 1 tab PO DAILY 02/24/18 02/24/18 History umeclidinium-vilanterol [Anoro 1 inh INHALATION Q24H 02/24/18 02/24/18 History Ellipta] Physical Exam Vital signs: Vital Signs 02/26/18 15:57 02/26/18 16:00 02/26/18 16:01 Temperature 98.6 F Pulse Rate 130 H 98 H Respiratory Rate 18 18 19 Blood Pressure 103/52 L Pulse Oximetry 94 L 95 02/26/18 17:37 02/26/18 19:50 02/26/18 19:55 Temperature Pulse Rate 94 H 91 H Respiratory Rate 18 18 Blood Pressure 124/59 L 115/58 L Pulse Oximetry 91 L 97 97 02/26/18 20:00 02/26/18 20:05 02/26/18 20:10 Temperature 99.1 F Pulse Rate 90 90 91 H Respiratory Rate 18 18 18 Blood Pressure 112/55 L 107/55 L 118/65 Pulse Oximetry 97 97 97 02/26/18 20:15 02/26/18 20:20 02/26/18 20:25 Temperature Pulse Rate 91 H 90 91 H Respiratory Rate 18 18 18 Blood Pressure 108/62 109/60 114/63 Pulse Oximetry 97 97 98 02/26/18 20:30 02/26/18 20:35 02/26/18 20:40 Temperature Pulse Rate 90 90 91 H Respiratory Rate 18 18 18 Blood Pressure 112/63 113/66 114/66 Pulse Oximetry 98 98 98 02/26/18 20:45 02/26/18 20:50 02/26/18 20:55 Temperature Pulse Rate 92 H 92 H 93 H Respiratory Rate 18 18 18 Blood Pressure 116/66 133/66 125/62 Pulse Oximetry 98 98 97 02/26/18 21:00 02/26/18 21:05 02/26/18 21:10 Temperature Pulse Rate 94 H 93 H 90 Respiratory Rate 18 18 18 Blood Pressure 110/56 L 111/58 L 107/59 L Pulse Oximetry 97 97 97 02/26/18 21:15 02/26/18 21:20 02/26/18 21:25 Temperature Pulse Rate 89 92 H 91 H Respiratory Rate 18 18 19 Blood Pressure 106/59 L 109/64 119/66 Pulse Oximetry 97 97 97 02/26/18 21:30 02/26/18 21:35 02/26/18 21:40 Temperature Pulse Rate 99 H 96 H 91 H Respiratory Rate 18 18 18 Blood Pressure 129/69 125/68 109/58 L Pulse Oximetry 97 97 97 02/26/18 21:45 02/26/18 21:50 02/26/18 21:55 Temperature Pulse Rate 90 90 90 Respiratory Rate 18 18 18 Blood Pressure 103/60 109/59 L 112/59 L Pulse Oximetry 97 97 97 02/26/18 22:00 02/26/18 22:05 02/26/18 22:10 Temperature Pulse Rate 87 87 87 Respiratory Rate 18 18 18 Blood Pressure 104/59 L 107/61 105/59 L Pulse Oximetry 98 98 98 02/26/18 22:15 02/26/18 22:20 02/26/18 22:25 Temperature Pulse Rate 86 89 90 Respiratory Rate 18 18 18 Blood Pressure 116/64 111/60 110/60 Pulse Oximetry 98 97 97 02/26/18 22:30 02/26/18 22:35 02/26/18 22:40 Temperature Pulse Rate 90 90 90 Respiratory Rate 18 18 18 Blood Pressure 110/61 111/63 112/64 Pulse Oximetry 97 97 97 02/26/18 22:45 02/26/18 22:50 02/26/18 22:55 Temperature Pulse Rate 91 H 92 H 92 H Respiratory Rate 18 18 18 Blood Pressure 113/65 107/62 119/56 L Pulse Oximetry 97 97 97 02/26/18 23:00 02/26/18 23:05 02/26/18 23:30 Temperature Pulse Rate 90 89 87 Respiratory Rate 18 18 18 Blood Pressure 100/55 L 98/54 L 99/59 L Pulse Oximetry 97 97 97 02/27/18 00:00 02/27/18 00:09 02/27/18 00:30 Temperature 99.1 F Pulse Rate 87 88 89 Respiratory Rate 18 18 18 Blood Pressure 99/65 L 120/67 Pulse Oximetry 98 97 97 02/27/18 01:00 02/27/18 01:30 02/27/18 01:45 Temperature Pulse Rate 89 83 80 Respiratory Rate 18 18 18 Blood Pressure 97/62 L 101/59 L 101/60 Pulse Oximetry 97 97 97 02/27/18 02:00 02/27/18 02:14 02/27/18 02:15 Temperature Pulse Rate 81 84 85 Respiratory Rate 18 18 18 Blood Pressure 118/66 119/65 Pulse Oximetry 97 97 97 02/27/18 02:30 02/27/18 03:00 02/27/18 03:16 Temperature Pulse Rate 80 80 78 Respiratory Rate 18 18 18 Blood Pressure 117/62 114/58 L Pulse Oximetry 98 97 97 02/27/18 03:30 02/27/18 04:00 02/27/18 04:30 Temperature 98.3 F Pulse Rate 79 80 78 Respiratory Rate 18 19 18 Blood Pressure 96/54 L 93/53 L 95/52 L Pulse Oximetry 97 97 97 02/27/18 04:38 02/27/18 04:40 02/27/18 06:12 Temperature Pulse Rate 77 Respiratory Rate 18 18 18 Blood Pressure Pulse Oximetry 97 98 02/27/18 07:52 02/27/18 08:00 02/27/18 09:00 Temperature 98.8 F Pulse Rate 76 78 79 Respiratory Rate 18 18 Blood Pressure 97/52 L Pulse Oximetry 97 97 02/27/18 10:00 02/27/18 10:26 02/27/18 12:00 Temperature 99.0 F Pulse Rate 86 68 Respiratory Rate 18 18 Blood Pressure 122/64 Pulse Oximetry 95 97 02/27/18 14:32 Temperature Pulse Rate Respiratory Rate 18 Blood Pressure Pulse Oximetry 93 L Intake & Output 02/26/18 02/27/18 02/27/18 18:59 06:59 18:59 Intake Total 100 / 100 1861.2 / 1861.2 450 / 450 Output Total 1950 / 1950 2300 / 2300 Balance -1850 / -1850 -438.8 / -438.8 450 / 450 Weight 65 kg Intake: IV 100 / 100 1861.2 / 1861.2 450 / 450 Heparin/D5W 25,000 U/250 mL 25, 250 / 250 000 unit In 250 ml @ Per Protocol IV.CONT TITRATE PRN Rx #:[id number] Primacor Inj 20 MG In NS Inj 80 100 / 100 ML @ 0.375 MCG/KG/MIN 7.76 mls /hr IV.CONT .[id number] [facility] Rx#: [id number] Diprivan 1000 mg/100 ml Inj 1, 300 / 300 100 / 100 000 mg In 100 ml @ 5 MCG/KG/MIN 2.07 mls/hr IV.CONT TITRATE PRN Rx#:[id number] NS Inj 1,000 ML @ 75 mls/hr IV. 250 / 250 CONT .[id number] [facility] Rx#: [id number] Pitressin Inj 40 UNIT In D5W 100 / 100 Inj 98 ML @ 0.01 UNITS/MIN 1.5 mls/hr IV.CONT TITRATE PRN Rx#: [id number] Magnesium Sulfate Inj 2 GM In 100 / 100 NS Inj 96 ML @ 50 mls/hr IV.SIG UNSCH PRN Rx#:[id number]-12 Inj 10 ML Thiamine Inj 511.2 / 511.2 100 MG Folvite Inj 1 MG In NS Inj 500 ML @ 125 mls/hr IV.SIG Q24H [facility] Rx#:[id number] Levophed-Dextrose 4 mg/250 ml 250 / 250 Drip 4 mg In 250 ml @ 2 MCG/MIN 7.5 mls/hr IV.SIG TITRATE PRN Rx#:[id number] KCl 20 mEq Premix Inj 20 meq In 100 / 100 100 ml @ 50 mls/hr IV.SIG Q2H PRN Rx#:[id number] KCl 40 mEq Premix Inj 40 meq In 100 / 100 100 ml @ 25 mls/hr IV.SIG Q2H PRN Rx#:[id number] fentaNYL 10 mcg/mL Premix Drip 250 / 250 2,500 mcg In 250 ml @ 50 MCG/HR 5 mls/hr IV.SIG TITRATE PRN Rx #:[id number] Oral 0 / 0 Output: Urine Amount (Catheter) 1949 / 2299 Indwelling Urethral Catheter 1949 Other: # Voids 4 Date of Last Bowel Movement 02/26/18 02/26/18 02/26/18 # Bowel Movements 0 # Incontinent Bowel Movements 1 - Constitutional no acute distress - Routine HEENT Exam Head: Present: normocephalic - Routine Neck Exam Present: supple - Routine Respiratory Exam Present: CTA bilaterally - Routine Cardiovascular Exam Present: S1, S2 - Routine Abdominal Exam Present: soft - Routine Extremities Exam Comments: no leslie - Urinary Catheter Management Indwelling Urethral Catheter Cath placed during this visit: yes Reason for continuing: Other continuation reason Insertion date: 02/26/18 Results 02/27/18 04:45 02/27/18 04:45 Cardiac Enzymes 02/26/18 02/26/18 02/26/18 Range/Units 03:25 10:54 10:54 AST 17 (15-37) U/L Troponin I 0.03 (0.02-0.05) ng/mL B-Natriuretic Peptide 571 H (0-100) pg/mL 02/26/18 Range/Units 23:45 AST (15-37) U/L Troponin I (0.02-0.05) ng/mL B-Natriuretic Peptide 822 H (0-100) pg/mL Coagulation 02/25/18 02/26/18 02/26/18 Range/Units 19:45 03:25 10:54 APTT 26.7 34.4 H D (23.4-31.7) sec B-Natriuretic Peptide 571 H (0-100) pg/mL 02/26/18 02/26/18 Range/Units 10:55 23:45 APTT 32.4 H (23.4-31.7) sec B-Natriuretic Peptide 822 H (0-100) pg/mL CBC 02/26/18 02/27/18 Range/Units 03:25 04:45 WBC 11.5 H 12.3 H (4.0-11.0) th/mm3 RBC 4.18 4.31 (4.00-5.30) mil/mm3 Hgb 13.9 14.3 (11.6-15.3) gm/dL Hct 40.8 41.4 (35.0-46.0) % Plt Count 197 245 (150-450) th/mm3 Neut # (Auto) 8.5 H 9.3 H (1.8-7.7) th/mm3 Lymph # (Auto) 1.9 1.7 (1.0-4.8) th/mm3 [place] # (Auto) 1.1 H 1.2 H (0.0-0.9) th/mm3 Eos # (Auto) 0.0 0.1 (0.0-0.4) th/mm3 Baso # (Auto) 0.0 0.0 (0.0-0.2) th/mm3 Comprehensive Metabolic Panel 02/26/18 02/26/18 02/27/18 Range/Units 03:25 10:54 04:45 Sodium 142 143 140 (136-145) meq/L Potassium 3.2 L 3.7 3.1 L (3.5-5.1) meq/L Chloride 109 H 108 H 101 (98-107) meq/L Carbon Dioxide 25.2 24.8 28.9 (21.0-32.0) meq/L BUN 25 H 24 H 19 H (7-18) mg/dL Creatinine 0.75 0.86 0.87 (0.50-1.00) mg/dL Calcium 8.1 L 8.9 D 8.5 (8.5-10.1) mg/dL AST 17 (15-37) U/L ALT 28 (10-53) U/L Alkaline Phosphatase 42 L (45-117) U/L Total Protein 6.5 D (6.4-8.2) g/dL Albumin 3.2 L D (3.4-5.0) g/dL Intake and Output 02/27/18 02/27/18 02/27/18 06:59 14:59 22:59 Intake Total 750 / 750 450 / 450 Output Total 2300 / 2300 Balance -1550 / -1550 450 / 450 Intake: IV 750 / 750 450 / 450 Primacor Inj 20 MG In NS Inj 80 100 / 100 ML @ 0.375 MCG/KG/MIN 7.76 mls /hr IV.CONT .[id number] [facility] Rx#: [id number] Diprivan 1000 mg/100 ml Inj 1, 200 / 200 100 / 100 000 mg In 100 ml @ 5 MCG/KG/MIN 2.07 mls/hr IV.CONT TITRATE PRN Rx#:[id number] Pitressin Inj 40 UNIT In D5W 100 / 100 Inj 98 ML @ 0.01 UNITS/MIN 1.5 mls/hr IV.CONT TITRATE PRN Rx#: [id number] Magnesium Sulfate Inj 2 GM In 100 / 100 NS Inj 96 ML @ 50 mls/hr IV.SIG UNSCH PRN Rx#:[id number] Levophed-Dextrose 4 mg/250 ml 250 / 250 Drip 4 mg In 250 ml @ 2 MCG/MIN 7.5 mls/hr IV.SIG TITRATE PRN Rx#:[id number] KCl 40 mEq Premix Inj 40 meq In 100 / 100 100 ml @ 25 mls/hr IV.SIG Q2H PRN Rx#:[id number] fentaNYL 10 mcg/mL Premix Drip 250 / 250 2,500 mcg In 250 ml @ 50 MCG/HR 5 mls/hr IV.SIG TITRATE PRN Rx #:[id number] Oral 0 / 0 Output: Urine Amount (Catheter) 2300 / 2300 Indwelling Urethral Catheter 2300 / 2300 Other: Date of Last Bowel Movement 02/26/18 02/26/18 # Bowel Movements 0 Weight 65 kg - Imaging and Cardiology Imaging: Impressions Chest X-Ray 02/26/18 00:00 CONCLUSION: Satisfactory support tube positioning. Likely developing parenchymal edema Chest X-Ray 02/26/18 13:52 CONCLUSION: New right subclavian line in good position without evidence of pneumothorax. Assessment and Plan - Assessment (1) Pulmonary edema Code(s): J81.1 - Chronic pulmonary edema Status: Acute (2) Acute hypoxemic respiratory failure Code(s): J96.01 - Acute respiratory failure with hypoxia Status: Acute (3) COPD with acute exacerbation Code(s): J44.1 - Chronic obstructive pulmonary disease with (acute) exacerbation Status: Acute (4) History of breast cancer Code(s): Z85.3 - Personal history of malignant neoplasm of breast Status: Chronic (5) Hyperglycemia Code(s): R73.9 - Hyperglycemia, unspecified Status: Suspected (6) CHF (congestive heart failure) Code(s): I50.9 - Heart failure, unspecified Status: Acute (7) LBBB (left bundle branch block) Code(s): I44.7 - Left bundle-branch block, unspecified Status: Acute - Plan 1.) Cardiomyopathy -on milronone and bumex drip and 55% O2; i have requested urgent transfer to heart transplant team due to markedly elevated lvedp=35, and poor response thus far to optimal medical therapy, patient may need an lvad , d/w , nurse, Dr Perez and case management
[2018-02-27 17:01] VITALS: BP 117/56; PULSE 75; RESP 18; O2SAT 95
--- NOTE | 2018-02-27 20:28 | P.PNCC ---
Subjective Subjective Remarks/Hospital Course: Patient is a 67-year-old female with previous history of COPD, history of breast cancer, status post lumpectomy, who presented to the emergency department at [facility] for acute shortness shortness of breath. She has a history of COPD and about 2 months ago had similar episode while she was jogging. Today she states that after brushing her teeth, she acutely became short of breath where she had to sit down to catch her breath and EMS was called. She had been given albuterol nebulizers by EMS. She denies any cardiac history and specifically no history of CHF. Denies fever or productive cough. Patient was very short of breath in the emergency department and hence was placed on BiPAP. She was given Ativan for anxiety. Patient was noted to have developed urticaria on her legs-unclear whether this happened in the ED after medications were given. Due to possibility of allergic reaction treatment was initiated including epinephrine, Benadryl, Zantac and nebulizers were continued with improvement in symptoms. Chest x-ray showing signs of pulmonary edema and IV Lasix 40 mg was given in the ER. Lab work shows a BNP 1726. EKG showed significant sinus tachycardia with a left bundle branch block on initial EKG, ventricular rate was 150's. Critical care medicine was requested to admit the patient I evaluated the patient in the C. Patient is anxious mild to moderately short of breath. She again describes sudden onset shortness of breath which was very severe. But this appears like flash pulmonary edema/CHF. Patient will be placed on scheduled Lasix. Due to new onset CHF, and left bundle branch block which is probably new, I have consulted cardiology. I did a bedside echo which shows left ventricular ejection fraction approximately 20-25 % with dilated LV and global LV dysfunction. Formal echo is pending at this time. patient was also noted to be hyperglycemic and I have ordered a hemoglobin A1c. 02/26: Critical care medicine was reconsulted today after cardiac catheterization. I am told that patient does not have significant coronary artery disease. Reconsult was for severe respiratory distress and hypoxia. On my evaluation patient is on BiPAP 12/5 increased to 15/5, FiO2 60%. Patient received 40 mg of IV Lasix and I gave 4 mg of IV morphine with no improvement. Patient still breathing about 40-50 breaths/min very tight wheezing with diminished air entry and basilar crackles. Patient is in extreme respiratory distress and appears to be heading to cardiopulmonary arrest. Patient was intubated and placed on mechanical ventilation. Received total of 80 mg of IV Lasix without adequate response. I discussed with Dr. Vizcaino there is no significant coronary artery disease. However patient was in severe left heart failure with PCWP 45 on right heart catheterization. Start aggressive diuresis with Bumex infusion start milrinone for inotropic support. Place art line, central line. Dr. Vizcaino has consulted case management for transfer to tertiary care center for heart transplant evaluation 02/27: excellent diuresis. lactate clearing. fio2 improving, down to 55%. patient awake, lightly sedated, follows commands. despite this, Dr. Vizcaino feels strongly about transfer to higher level of care and has found accepting physician at [facility]. patient denies complaints. Objective Vital Signs / I&O: Vital Signs 02/26/18 20:25 02/26/18 20:30 02/26/18 20:35 Temperature Pulse Rate 91 H 90 90 Respiratory Rate 18 18 18 Blood Pressure 114/63 112/63 113/66 Pulse Oximetry 98 98 98 02/26/18 20:40 02/26/18 20:45 02/26/18 20:50 Temperature Pulse Rate 91 H 92 H 92 H Respiratory Rate 18 18 18 Blood Pressure 114/66 116/66 133/66 Pulse Oximetry 98 98 98 02/26/18 20:55 02/26/18 21:00 02/26/18 21:05 Temperature Pulse Rate 93 H 94 H 93 H Respiratory Rate 18 18 18 Blood Pressure 125/62 110/56 L 111/58 L Pulse Oximetry 97 97 97 02/26/18 21:10 02/26/18 21:15 02/26/18 21:20 Temperature Pulse Rate 90 89 92 H Respiratory Rate 18 18 18 Blood Pressure 107/59 L 106/59 L 109/64 Pulse Oximetry 97 97 97 02/26/18 21:25 02/26/18 21:30 02/26/18 21:35 Temperature Pulse Rate 91 H 99 H 96 H Respiratory Rate 19 18 18 Blood Pressure 119/66 129/69 125/68 Pulse Oximetry 97 97 97 02/26/18 21:40 02/26/18 21:45 02/26/18 21:50 Temperature Pulse Rate 91 H 90 90 Respiratory Rate 18 18 18 Blood Pressure 109/58 L 103/60 109/59 L Pulse Oximetry 97 97 97 02/26/18 21:55 02/26/18 22:00 02/26/18 22:05 Temperature Pulse Rate 90 87 87 Respiratory Rate 18 18 18 Blood Pressure 112/59 L 104/59 L 107/61 Pulse Oximetry 97 98 98 02/26/18 22:10 02/26/18 22:15 02/26/18 22:20 Temperature Pulse Rate 87 86 89 Respiratory Rate 18 18 18 Blood Pressure 105/59 L 116/64 111/60 Pulse Oximetry 98 98 97 02/26/18 22:25 02/26/18 22:30 02/26/18 22:35 Temperature Pulse Rate 90 90 90 Respiratory Rate 18 18 18 Blood Pressure 110/60 110/61 111/63 Pulse Oximetry 97 97 97 02/26/18 22:40 02/26/18 22:45 02/26/18 22:50 Temperature Pulse Rate 90 91 H 92 H Respiratory Rate 18 18 18 Blood Pressure 112/64 113/65 107/62 Pulse Oximetry 97 97 97 02/26/18 22:55 02/26/18 23:00 02/26/18 23:05 Temperature Pulse Rate 92 H 90 89 Respiratory Rate 18 18 18 Blood Pressure 119/56 L 100/55 L 98/54 L Pulse Oximetry 97 97 97 02/26/18 23:30 02/27/18 00:00 02/27/18 00:09 Temperature 37.3 C Pulse Rate 87 87 88 Respiratory Rate 18 18 18 Blood Pressure 99/59 L 99/65 L Pulse Oximetry 97 98 97 02/27/18 00:30 02/27/18 01:00 02/27/18 01:30 Temperature Pulse Rate 89 89 83 Respiratory Rate 18 18 18 Blood Pressure 120/67 97/62 L 101/59 L Pulse Oximetry 97 97 97 02/27/18 01:45 02/27/18 02:00 02/27/18 02:14 Temperature Pulse Rate 80 81 84 Respiratory Rate 18 18 18 Blood Pressure 101/60 118/66 Pulse Oximetry 97 97 97 02/27/18 02:15 02/27/18 02:30 02/27/18 03:00 Temperature Pulse Rate 85 80 80 Respiratory Rate 18 18 18 Blood Pressure 119/65 117/62 Pulse Oximetry 97 98 97 02/27/18 03:16 02/27/18 03:30 02/27/18 04:00 Temperature 36.8 C Pulse Rate 78 79 80 Respiratory Rate 18 18 19 Blood Pressure 114/58 L 96/54 L 93/53 L Pulse Oximetry 97 97 97 02/27/18 04:30 02/27/18 04:38 02/27/18 04:40 Temperature Pulse Rate 78 77 Respiratory Rate 18 18 18 Blood Pressure 95/52 L Pulse Oximetry 97 97 02/27/18 06:12 02/27/18 07:52 02/27/18 08:00 Temperature 37.1 C Pulse Rate 76 78 Respiratory Rate 18 18 18 Blood Pressure 97/52 L Pulse Oximetry 98 97 97 02/27/18 09:00 02/27/18 10:00 02/27/18 10:26 Temperature Pulse Rate 79 86 Respiratory Rate 18 Blood Pressure Pulse Oximetry 95 02/27/18 12:00 02/27/18 14:32 02/27/18 15:30 Temperature 37.2 C Pulse Rate 68 74 Respiratory Rate 18 18 19 Blood Pressure 122/64 Pulse Oximetry 97 93 L 02/27/18 16:00 Temperature 37.2 C Pulse Rate 75 Respiratory Rate 18 Blood Pressure 117/56 L Pulse Oximetry 95 Intake & Output 02/27/18 02/27/18 02/28/18 06:59 18:59 06:59 Intake Total 1861.2 / 1861.2 750 / 750 Output Total 2300 / 2300 2100 / 2100 Balance -438.8 / -438.8 -1350 / -1350 Weight 65 kg Intake: IV 1861.2 / 1861.2 750 / 750 Heparin/D5W 25,000 U/250 mL 25, 250 / 250 000 unit In 250 ml @ Per Protocol IV.CONT TITRATE PRN Rx #:[id number] Primacor Inj 20 MG In NS Inj 80 100 / 100 100 / 100 ML @ 0.375 MCG/KG/MIN 7.76 mls /hr IV.CONT .[id number] GRACE Rx#: [id number] Diprivan 1000 mg/100 ml Inj 1, 300 / 300 200 / 200 000 mg In 100 ml @ 5 MCG/KG/MIN 2.07 mls/hr IV.CONT TITRATE PRN Rx#:[id number] NS Inj 1,000 ML @ 75 mls/hr IV. 250 / 250 CONT .[id number] GRACE Rx#: [id number] Pitressin Inj 40 UNIT In D5W 100 / 100 Inj 98 ML @ 0.01 UNITS/MIN 1.5 mls/hr IV.CONT TITRATE PRN Rx#: [id number] Magnesium Sulfate Inj 2 GM In 100 / 100 NS Inj 96 ML @ 50 mls/hr IV.SIG UNSCH PRN Rx#:[id number] MVI-12 Inj 10 ML Thiamine Inj 511.2 / 511.2 100 MG Folvite Inj 1 MG In NS Inj 500 ML @ 125 mls/hr IV.SIG Q24H GRACE Rx#:[id number] Levophed-Dextrose 4 mg/250 ml 250 / 250 Drip 4 mg In 250 ml @ 2 MCG/MIN 7.5 mls/hr IV.SIG TITRATE PRN Rx#:[id number] KCl 40 mEq Premix Inj 40 meq In 200 / 200 100 ml @ 25 mls/hr IV.SIG Q2H PRN Rx#:[id number] fentaNYL 10 mcg/mL Premix Drip 250 / 250 2,500 mcg In 250 ml @ 50 MCG/HR 5 mls/hr IV.SIG TITRATE PRN Rx #:[id number] Oral 0 / 0 0 / 0 Output: Urine Amount (Catheter) 2299 / 2299 Indwelling Urethral Catheter 2299 / 2299 Other: Date of Last Bowel Movement 02/26/18 02/26/18 # Bowel Movements 0 0 Result Diagrams: 02/27/18 04:45 02/27/18 15:30 Objective Remarks: GENERAL: elderly female, lying in bed, intubated but arousable. SKIN: Warm HEAD: Atraumatic. Normocephalic. EYES: Pupils equal and round. ENT: Oral mucosa is moist airway patent NECK: Trachea midline. +JVD. CARDIOVASCULAR: normal rate, regular rhythm. appears sinus. RESPIRATORY: intubated. fio2 55%. PEEP 8. unlabored. equal chest rise. GASTROINTESTINAL: Abdomen soft, non-tender, no guarding. MUSCULOSKELETAL: No obvious deformities. No clubbing. No cyanosis. 1+ pedal edema. NEUROLOGICAL: RASS -2. follows commands. arouses. CAM-. Assessment and Plan - Problem List (1) CHF (congestive heart failure) Code(s): I50.9 - Heart failure, unspecified Status: Acute (2) Acute hypoxemic respiratory failure Code(s): J96.01 - Acute respiratory failure with hypoxia Status: Acute (3) COPD with acute exacerbation Code(s): J44.1 - Chronic obstructive pulmonary disease with (acute) exacerbation Status: Acute (4) Hyperglycemia Code(s): R73.9 - Hyperglycemia, unspecified Status: Suspected (5) LBBB (left bundle branch block) Code(s): I44.7 - Left bundle-branch block, unspecified Status: Acute (6) History of breast cancer Code(s): Z85.3 - Personal history of malignant neoplasm of breast Status: Chronic - Assessment and Plan Plan: Assessment: 67yF with dilated cardiomyopathy, possibly etoh related, in cardiogenic shock and acute decompensated systolic congestive heart failure exacerbation and associated organ failure including acute hypoxic respiratory failure. clinically improving. unlikely to be mechanical support candidate, and given ongoing etoh use, unlikely to be transplant candidate at the present time. I do think she can be successfully weaned from ventilatory support, and given her lactate clearing and uop, as well as excellent forced diuresis, could be medically optimized. would need initiation of BBlocker/ACEI and AICD evaluation prior to any long-term inotropic or mechanical support. Cardiology has found accepting physician as OSH and will transfer for further evaluation. NEURO: Daily alcohol use -Postintubation sedation with propofol and fentanyl -Supplement multivitamin thiamine due to history of daily alcohol use RESP: Acute hypoxemic respiratory failure Flash pulmonary edema COPD exacerbation -Emergently intubated and placed on mechanical ventilation -Slightly anterior airway intubated with glide scope -PRVC/AC. Ventilator bundle -Currently off Decadron -DuoNeb every 4 hours scheduled and as needed -(Previously in the ER received epinephrine, Benadryl, famotidine for possible allergic reaction) CV: Flash pulmonary edema Systolic heart failure, acute Dilated cardiomyopathy (? Alcohol related) Left bundle branch block Elevated BNP -Cardiac catheterization confirmed nonischemic cardiomyopathy, severely elevated wedge pressure PCWP 45 -Post cardiac catheterization developed severe pulmonary edema received 80 mg IV Lasix stat without adequate improvement -intubated and placed on mechanical ventilation -Bumex infusion at 0.5 mg/h. Continue Aldactone 50 twice daily - add diamox 500mg iv q8h for developing alkalosis. -continue milrinone for inotropic support. -No beta-blockers due to acute decompensated heart failure -Bedside echo shows EF approximately 20-25% with dilated LV, global LV dysfunction, confirmed on formal echo -Her cardiomyopathy could be secondary to alcohol, Chemotherapy for breast cancer was approximately 17 years ago -Formal Echo: Severely dilated left ventricle. LVEF 20-25%. Global left ventricular dysfunction. [id number] mitral valve regurgitation. -Wide-complex tachycardia noted on EKG is most likely sinus tachycardia with left bundle branch block -Dr. Vizcaino has consulted case management today for evaluation for transplant at [facility] -Once hemodynamically stable and hypoxemia improved, may require transfer to ICU to ICU. (Active alcohol use may preclude a cardiac transplant. Await to hear from [facility]) GI: -NPO, IV famotidine : -Monitor renal function closely. Place Goncalves catheter for strict hourly intake output -IV Bumex and Aldactone as above ID: -Discontinue Levaquin while using inotrope -Negative urine for Legionella antigen, influenza A and B. HEME: -Monitor CBC, coags ENDO: Hyperglycemia -Electrolyte replacement per protocol -Sliding scale insulin PROPH: -Bilateral lower extremity SCDs. IV famotidine. Resume chemical DVT prophylaxis with Lovenox LINES: -Utilize peripheral IVs, place central line and arterial line Patient is very critical developed flash pulmonary edema requiring emergency intubation and mechanical ventilation. Her prognosis is poor given EF of 20% with severe LV failure pulmonary capillary wedge pressure of 45. Aggressive diuresis and inotropic support started. Case management evaluating for transfer to [facility] for transplant evaluation. 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 This may preclude cardiac transplant. For the same reason I will hold off on Impella support at this time
--- NOTE | 2018-02-27 20:32 | P.DS ---
Date of admission: 02/24/18 13:30 Primary care physician: Joel George MD Attending physician on discharge: Gabriel Daley Sánchez Anticipated date of discharge: 02/27/18 Brief History from admission: Patient is a 67-year-old female with previous history of COPD, history of breast cancer, status post lumpectomy, who presented to the emergency department at [place] for acute shortness shortness of breath. She has a history of COPD and about 2 months ago had similar episode while she was jogging. Today she states that after brushing her teeth, she acutely became short of breath where she had to sit down to catch her breath and EMS was called. She had been given albuterol nebulizers by EMS. She denies any cardiac history and specifically no history of CHF. Denies fever or productive cough. Patient was very short of breath in the emergency department and hence was placed on BiPAP. She was given Ativan for anxiety. Patient was noted to have developed urticaria on her legs-unclear whether this happened in the ED after medications were given. Due to possibility of allergic reaction treatment was initiated including epinephrine, Benadryl, Zantac and nebulizers were continued with improvement in symptoms. Chest x-ray showing signs of pulmonary edema and IV Lasix 40 mg was given in the ER. Lab work shows a BNP 1726. EKG showed significant sinus tachycardia with a left bundle branch block on initial EKG, ventricular rate was 150's. Critical care medicine was requested to admit the patient I evaluated the patient in the [facility]. Patient is anxious mild to moderately short of breath. She again describes sudden onset shortness of breath which was very severe. But this appears like flash pulmonary edema/CHF. Patient will be placed on scheduled Lasix. Due to new onset CHF, and left bundle branch block which is probably new, I have consulted cardiology. I did a bedside echo which shows left ventricular ejection fraction approximately 20-25 % with dilated LV and global LV dysfunction. Formal echo is pending at this time. patient was also noted to be hyperglycemic and I have ordered a hemoglobin A1c. DS: Diagnosis - Discharge Diagnosis (1) CHF (congestive heart failure) Status: Acute (2) Acute hypoxemic respiratory failure Status: Acute (3) COPD with acute exacerbation Status: Acute (4) Hyperglycemia Status: Suspected (5) LBBB (left bundle branch block) Status: Acute (6) History of breast cancer Status: Chronic DS: Summary Hospital Course: Patient is a 67-year-old female with previous history of COPD, history of breast cancer, status post lumpectomy, who presented to the emergency department at [place] for acute shortness shortness of breath. She has a history of COPD and about 2 months ago had similar episode while she was jogging. Today she states that after brushing her teeth, she acutely became short of breath where she had to sit down to catch her breath and EMS was called. She had been given albuterol nebulizers by EMS. She denies any cardiac history and specifically no history of CHF. Denies fever or productive cough. Patient was very short of breath in the emergency department and hence was placed on BiPAP. She was given Ativan for anxiety. Patient was noted to have developed urticaria on her legs-unclear whether this happened in the ED after medications were given. Due to possibility of allergic reaction treatment was initiated including epinephrine, Benadryl, Zantac and nebulizers were continued with improvement in symptoms. Chest x-ray showing signs of pulmonary edema and IV Lasix 40 mg was given in the ER. Lab work shows a BNP 1726. EKG showed significant sinus tachycardia with a left bundle branch block on initial EKG, ventricular rate was 150's. Critical care medicine was requested to admit the patient I evaluated the patient in the [facility]. Patient is anxious mild to moderately short of breath. She again describes sudden onset shortness of breath which was very severe. But this appears like flash pulmonary edema/CHF. Patient will be placed on scheduled Lasix. Due to new onset CHF, and left bundle branch block which is probably new, I have consulted cardiology. I did a bedside echo which shows left ventricular ejection fraction approximately 20-25 % with dilated LV and global LV dysfunction. Formal echo is pending at this time. patient was also noted to be hyperglycemic and I have ordered a hemoglobin A1c. 02/26: Critical care medicine was reconsulted today after cardiac catheterization. I am told that patient does not have significant coronary artery disease. Reconsult was for severe respiratory distress and hypoxia. On my evaluation patient is on BiPAP 12/5 increased to 15/5, FiO2 60%. Patient received 40 mg of IV Lasix and I gave 4 mg of IV morphine with no improvement. Patient still breathing about 40-50 breaths/min very tight wheezing with diminished air entry and basilar crackles. Patient is in extreme respiratory distress and appears to be heading to cardiopulmonary arrest. Patient was intubated and placed on mechanical ventilation. Received total of 80 mg of IV Lasix without adequate response. I discussed with Dr. Vizcaino there is no significant coronary artery disease. However patient was in severe left heart failure with PCWP 45 on right heart catheterization. Start aggressive diuresis with Bumex infusion start milrinone for inotropic support. Place art line, central line. Dr. Vizcaino has consulted case management for transfer to tertiary care center for heart transplant evaluation 02/27: excellent diuresis. lactate clearing. fio2 improving, down to 55%. patient awake, lightly sedated, follows commands. despite this, Dr. Vizcaino feels strongly about transfer to higher level of care and has found accepting physician at [facility]. patient denies complaints. - Time Spent with Patient Total time spent providing and/or coordinating discharge services: Less than 30 minutes Exam Vital signs: Vital Signs 02/26/18 20:35 02/26/18 20:40 02/26/18 20:45 Temperature Pulse Rate 90 91 H 92 H Respiratory Rate 18 18 18 Blood Pressure 113/66 114/66 116/66 Pulse Oximetry 98 98 98 02/26/18 20:50 02/26/18 20:55 02/26/18 21:00 Temperature Pulse Rate 92 H 93 H 94 H Respiratory Rate 18 18 18 Blood Pressure 133/66 125/62 110/56 L Pulse Oximetry 98 97 97 02/26/18 21:05 02/26/18 21:10 02/26/18 21:15 Temperature Pulse Rate 93 H 90 89 Respiratory Rate 18 18 18 Blood Pressure 111/58 L 107/59 L 106/59 L Pulse Oximetry 97 97 97 02/26/18 21:20 02/26/18 21:25 02/26/18 21:30 Temperature Pulse Rate 92 H 91 H 99 H Respiratory Rate 18 19 18 Blood Pressure 109/64 119/66 129/69 Pulse Oximetry 97 97 97 02/26/18 21:35 02/26/18 21:40 02/26/18 21:45 Temperature Pulse Rate 96 H 91 H 90 Respiratory Rate 18 18 18 Blood Pressure 125/68 109/58 L 103/60 Pulse Oximetry 97 97 97 02/26/18 21:50 02/26/18 21:55 02/26/18 22:00 Temperature Pulse Rate 90 90 87 Respiratory Rate 18 18 18 Blood Pressure 109/59 L 112/59 L 104/59 L Pulse Oximetry 97 97 98 02/26/18 22:05 02/26/18 22:10 02/26/18 22:15 Temperature Pulse Rate 87 87 86 Respiratory Rate 18 18 18 Blood Pressure 107/61 105/59 L 116/64 Pulse Oximetry 98 98 98 02/26/18 22:20 02/26/18 22:25 02/26/18 22:30 Temperature Pulse Rate 89 90 90 Respiratory Rate 18 18 18 Blood Pressure 111/60 110/60 110/61 Pulse Oximetry 97 97 97 02/26/18 22:35 02/26/18 22:40 02/26/18 22:45 Temperature Pulse Rate 90 90 91 H Respiratory Rate 18 18 18 Blood Pressure 111/63 112/64 113/65 Pulse Oximetry 97 97 97 02/26/18 22:50 02/26/18 22:55 02/26/18 23:00 Temperature Pulse Rate 92 H 92 H 90 Respiratory Rate 18 18 18 Blood Pressure 107/62 119/56 L 100/55 L Pulse Oximetry 97 97 97 02/26/18 23:05 02/26/18 23:30 02/27/18 00:00 Temperature 37.3 C Pulse Rate 89 87 87 Respiratory Rate 18 18 18 Blood Pressure 98/54 L 99/59 L 99/65 L Pulse Oximetry 97 97 98 02/27/18 00:09 02/27/18 00:30 02/27/18 01:00 Temperature Pulse Rate 88 89 89 Respiratory Rate 18 18 18 Blood Pressure 120/67 97/62 L Pulse Oximetry 97 97 97 02/27/18 01:30 02/27/18 01:45 02/27/18 02:00 Temperature Pulse Rate 83 80 81 Respiratory Rate 18 18 18 Blood Pressure 101/59 L 101/60 Pulse Oximetry 97 97 97 02/27/18 02:14 02/27/18 02:15 02/27/18 02:30 Temperature Pulse Rate 84 85 80 Respiratory Rate 18 18 18 Blood Pressure 118/66 119/65 117/62 Pulse Oximetry 97 97 98 02/27/18 03:00 02/27/18 03:16 02/27/18 03:30 Temperature Pulse Rate 80 78 79 Respiratory Rate 18 18 18 Blood Pressure 114/58 L 96/54 L Pulse Oximetry 97 97 97 02/27/18 04:00 02/27/18 04:30 02/27/18 04:38 Temperature 36.8 C Pulse Rate 80 78 Respiratory Rate 19 18 18 Blood Pressure 93/53 L 95/52 L Pulse Oximetry 97 97 97 02/27/18 04:40 02/27/18 06:12 02/27/18 07:52 Temperature Pulse Rate 77 76 Respiratory Rate 18 18 18 Blood Pressure Pulse Oximetry 98 97 02/27/18 08:00 02/27/18 09:00 02/27/18 10:00 Temperature 37.1 C Pulse Rate 78 79 86 Respiratory Rate 18 Blood Pressure 97/52 L Pulse Oximetry 97 02/27/18 10:26 02/27/18 12:00 02/27/18 14:32 Temperature 37.2 C Pulse Rate 68 Respiratory Rate 18 18 18 Blood Pressure 122/64 Pulse Oximetry 95 97 93 L 02/27/18 15:30 02/27/18 16:00 Temperature 37.2 C Pulse Rate 74 75 Respiratory Rate 19 18 Blood Pressure 117/56 L Pulse Oximetry 95 Intake & Output 02/27/18 02/27/18 02/28/18 06:59 18:59 06:59 Intake Total 1861.2 / 1861.2 750 / 750 Output Total 2300 / 2300 2100 / 2100 Balance -438.8 / -438.8 -1350 / -1350 Weight 65 kg Intake: IV 1861.2 / 1861.2 750 / 750 Heparin/D5W 25,000 U/250 mL 25, 250 / 250 000 unit In 250 ml @ Per Protocol IV.CONT TITRATE PRN Rx #:[id number] Primacor Inj 20 MG In NS Inj 80 100 / 100 100 / 100 ML @ 0.375 MCG/KG/MIN 7.76 mls /hr IV.CONT .[id number] [facility] Rx#: [id number] Diprivan 1000 mg/100 ml Inj 1, 300 / 300 200 / 200 000 mg In 100 ml @ 5 MCG/KG/MIN 2.07 mls/hr IV.CONT TITRATE PRN Rx#:[id number] NS Inj 1,000 ML @ 75 mls/hr IV. 250 / 250 CONT .[id number] [facility] Rx#: [id number] Pitressin Inj 40 UNIT In D5W 100 / 100 Inj 98 ML @ 0.01 UNITS/MIN 1.5 mls/hr IV.CONT TITRATE PRN Rx#: [id number] Magnesium Sulfate Inj 2 GM In 100 / 100 NS Inj 96 ML @ 50 mls/hr IV.SIG UNSCH PRN Rx#:[id number] MVI-12 Inj 10 ML Thiamine Inj 511.2 / 511.2 100 MG Folvite Inj 1 MG In NS Inj 500 ML @ 125 mls/hr IV.SIG Q24H GRACE Rx#:[id number] Levophed-Dextrose 4 mg/250 ml 250 / 250 Drip 4 mg In 250 ml @ 2 MCG/MIN 7.5 mls/hr IV.SIG TITRATE PRN Rx#:[id number] KCl 40 mEq Premix Inj 40 meq In 200 / 200 100 ml @ 25 mls/hr IV.SIG Q2H PRN Rx#:[id number] fentaNYL 10 mcg/mL Premix Drip 250 / 250 2,500 mcg In 250 ml @ 50 MCG/HR 5 mls/hr IV.SIG TITRATE PRN Rx #:[id number] Oral 0 / 0 0 / 0 Output: Urine Amount (Catheter) 2299 / 2299 Indwelling Urethral Catheter 2299 Other: Date of Last Bowel Movement 02/26/18 02/26/18 # Bowel Movements 0 0 Results Procedures completed during hospitalization: for [facility] Labs on day of discharge: Labs from last 24 hours 02/27/18 02/27/18 02/27/18 17:33 15:30 14:01 WBC RBC Hgb Hct MCV MCH MCHC RDW Plt Count MPV Neut % (Auto) Lymph % (Auto) [place] % (Auto) Eos % (Auto) Baso % (Auto) Neut # (Auto) Lymph # (Auto) [place] # (Auto) Eos # (Auto) Baso # (Auto) WBC Differential Differential Comment Sodium Potassium 3.4 L Chloride Carbon Dioxide Anion Gap BUN Creatinine Estimated GFR POC Glucose 155 H 153 H Random Glucose Calcium Magnesium B-Natriuretic Peptide 02/27/18 02/27/18 02/27/18 12:31 05:06 04:45 WBC 12.3 H RBC 4.31 Hgb 14.3 Hct 41.4 MCV 96.1 MCH 33.2 MCHC 34.5 RDW 13.0 Plt Count 245 MPV 7.6 Neut % (Auto) 75.8 H Lymph % (Auto) 13.8 [place] % (Auto) 9.5 H Eos % (Auto) 0.6 Baso % (Auto) 0.3 Neut # (Auto) 9.3 H Lymph # (Auto) 1.7 [place] # (Auto) 1.2 H Eos # (Auto) 0.1 Baso # (Auto) 0.0 WBC Differential . Differential Comment Auto diff final Sodium Potassium Chloride Carbon Dioxide Anion Gap BUN Creatinine Estimated GFR POC Glucose 149 H 162 H Random Glucose Calcium Magnesium B-Natriuretic Peptide 02/27/18 02/26/18 02/26/18 04:45 23:45 23:45 WBC RBC Hgb Hct MCV MCH MCHC RDW Plt Count MPV Neut % (Auto) Lymph % (Auto) [place] % (Auto) Eos % (Auto) Baso % (Auto) Neut # (Auto) Lymph # (Auto) [place] # (Auto) Eos # (Auto) Baso # (Auto) WBC Differential Differential Comment Sodium 140 Potassium 3.1 L Chloride 101 Carbon Dioxide 28.9 Anion Gap 10 BUN 19 H Creatinine 0.87 Estimated GFR 65 L POC Glucose Random Glucose 163 H Calcium 8.5 Magnesium 2.4 D 1.6 B-Natriuretic Peptide 822 H 02/26/18 23:14 WBC RBC Hgb Hct MCV MCH MCHC RDW Plt Count MPV Neut % (Auto) Lymph % (Auto) [place] % (Auto) Eos % (Auto) Baso % (Auto) Neut # (Auto) Lymph # (Auto) [place] # (Auto) Eos # (Auto) Baso # (Auto) WBC Differential Differential Comment Sodium Potassium Chloride Carbon Dioxide Anion Gap BUN Creatinine Estimated GFR POC Glucose 189 H Random Glucose Calcium Magnesium B-Natriuretic Peptide - Impressions ITS Impressions Chest X-Ray 02/26/18 13:52 CONCLUSION: New right subclavian line in good position without evidence of pneumothorax. Discharge Plan - Discharge Disposition Patient Disposition: Disch To Another Hospital - Discharge Condition Condition: Critical - Discharge Order Discharge Orders: Discharge Order (Routine); Ordered 02/27/18 Ordered By: Gabriel Sánchez - Discharge Details Anticipated Discharge Date: 02/24/18 - Physicians Team Primary Care Provider: Joel George Attending Provider: Pamela Lund Other Providers: Pop Vizcaino MD ; Pamela Lund MD
[2018-02-27 21:27] VITALS: TEMP 98.8
== END 2018-02-27 21:00 | disposition short-term general hospital (02) ==
LOC: PHED 10:24 → PHEDA 13:30 → HIMC 15:25
PROVIDERS: ADMIT Internal Medicine; ATTEND Internal Medicine